=== PATIENT | female | born 1945 | race Caucasian/White ===

== ENCOUNTER 2016-08-04 10:37 | Inpatient (IN) ==
[2016-08-04] MEDS ORDERED: Albuterol 2.5 MG/3 ML NEBULIZER IH PRN (11:17)
[2016-08-04] MEDS ORDERED: *HR* Succinylcholine 200 MG/10 ML VIAL IVP ONE (11:19)
[2016-08-04] MEDS ORDERED: *HR* Phenylephrine 10 MG/ML VIAL ONE (11:19)
[2016-08-04] MEDS ORDERED: *HR* Rocuronium Bromide 50 MG/5 ML VIAL ONE (11:19)
[2016-08-04] MEDS ORDERED: Lidocaine -MPF 4% 5 ML AMPUL ONE ×2 (11:19→11:21)
[2016-08-04] MEDS ORDERED: Lidocaine -MPF 2% 2 ML VIAL ONE ×2 (11:19→13:15)
[2016-08-04] MEDS ORDERED: ceFAZolin 2,000 MG in D5% in Water (Mini-Bag+) 100 ML IVPB ONE (11:21)
[2016-08-04] MEDS ORDERED: *HR* Remifentanil 2 MG VIAL IVP ONE ×2 (11:21→15:37)
[2016-08-04] MEDS ORDERED: *HR* Propofol 200 MG/20 ML VIAL IVP ONE (11:21)
[2016-08-04] MEDS ORDERED: *HR* Midazolam HCl 2 MG/2 ML VIAL ONE (11:21)
[2016-08-04] MEDS ORDERED: EPHEDrine 50 MG/ML VIAL ONE (11:26)
--- NOTE | 2016-08-04 11:26 | Anesthesia Evaluation PreOp ---
Date of Encounter: 08/04/16 Time of Encounter: 11:23 - Past History Planned Operation: Left CEA Cardiac History: [place] (2013), HTN, Hyperlipidemia, Cardiac Stent (x 13 last stent 2013), Other ( 13 cardiac stents, [facility] 2005 with 4 stents, last stenting 2013 after [place] COPR, intubation and 14 day ICU admission) Pulmonary History: Former smoker (Quit > 1 year ago) [employer] SETTER History: Denies Any Significant HX Other Medical History: Renal (One kidney) Anesthesia History: No Prior Anesthetic Complications, Past Anesthesia (PRESLEY,GB, Appy, Discectomy,Cardiac stents, Cervical spine) : No Alcohol Use: none Drug use: none Medications and Allergies Alprazolam [Xanax 0.25 MG Tablet] 1 mg PO QID 08/09/15 [History] Aspirin [Adult Low Dose Aspirin EC] 81 mg PO DAILY 08/09/15 [History] Cyanocobalamin (B-12) [Vitamin B12] 1,000 mcg PO DAILY 08/09/15 [History] Isosorbide MONOnitrate (24 HR) [Imdur] 30 mg PO DAILY 08/09/15 [History] Metoprolol Tartrate [Lopressor] 25 mg PO BID 08/09/15 [History] Multivitamin [Multi-Day Vitamins] 1 each PO DAILY 08/09/15 [History] Nitroglycerin [Nitrostat] 0.4 mg SL TID PRN 08/09/15 [History] Paroxetine HCl [Paroxetine] 40 mg PO DAILY 08/09/15 [History] Valsartan/Hydrochlorothiazide [Diovan Hct 160-25 mg Tablet] 1 each PO DAILY [History] Pantoprazole Sodium [Protonix] 40 mg PO DAILY 14 Days 09/07/15 [Rx] Saline Nasal [place] [[place] Nasal [place]] 3 spray NS QID 7 Days 09/07/15 [Rx] Allopurinol [Zyloprim] 300 mg PO DAILY 07/31/16 [History] Atorvastatin [Lipitor] 40 mg PO HS 07/31/16 [History] Hydrocodone/Acetaminophen [[place] 5-325 Tablet] 2 each PO Q6HR PRN 07/31/16 [ History] Sitagliptin Phosphate [Januvia] 100 mg PO DAILY 07/31/16 [History] Tiotropium [Spiriva] 18 mcg IH DAILY PRN 07/31/16 [History] Valsartan/Hydrochlorothiazide [Diovan Hct 160-25 mg Tablet] 1 each PO DAILY [History] Allergies Penicillins Allergy (Verified 07/31/16 09:10) Hives Ticarcillin Allergy (Verified 07/31/16 09:10) Hives aspirin Adverse Reaction (Verified 07/31/16 09:10) See Comments stomach barboza with full strength clavulanic acid Adverse Reaction (Verified 07/31/16 09:10) Heartburn ondansetron [From Zofran (as hydrochloride)] Adverse Reaction (Verified 09:10) Hives Vrzshms-Zen-Xcp Reductase Inhibitor [Statins] Adverse Reaction (Verified 09:10) Muscle Pain - Meds/Allergy Pre-op Review Medications Reviewed: Yes Allergies Reviewed: Yes Beta Blockers on Current Med List: Yes If Beta Blockers taken, Date/Time (Last Dose taken): 09:00 08/04/2016 Anesthesia Results - Labs Laboratory Tests 07/23/16 07/23/16 07/23/16 08:07 08:07 08:07 WBC 8.8 Hgb 13.5 Hct 42.9 Plt Count 231 INR 1.1 Sodium 141 Potassium 4.1 Chloride 104 Carbon Dioxide 28 BUN 16 Creatinine 1.10 Stress 03/10/14 EF - 72% mod LV diastolic dysfunction Small apical perfusion defect low risk finding echo 03/10/2017 EF-60-65% No sig. Valvular dx - Imaging EKG: image reviewed (SR, Poss lat ischemia) Anesthesia Exam O2 Sat Height 1.65 m Height 1.65 m Height 1.65 m Weight 80.286 kg Weight 80.286 kg Weight 80.286 kg O2 Sat by Pulse Oximetry 96 Vital Signs Temp Pulse Resp BP Pulse Ox 97.9 F 81 18 124/70 96 08/04/16 11:23 08/04/16 11:23 08/04/16 11:23 08/04/16 11:23 08/04/16 11:23 Height: 5'5'' Weight: 157# - HEENT Pupil (Motor): Pupils equal, EOMI Mallampati: III Teeth: Edentulous Oral Opening: Greater than 3 - [employer] SETTER LOC: Oriented [employer] P[employer]ACH[employer] SETTER Motor: Normal RUE, Normal LUE, Normal RLE, Normal LLE, Normal Face [employer] P[employer] SETTER Sensory: Normal: RUE, LUE, RLE, LLE, Face - Cardiac Rhythm: Regular Murmur: None JVD: No Carotid Bruit: No - Pulmonary Breath Sounds: bilateral Clear Respiratory Effort: Symmetrical Anesthesia Assess/Plan ASA Score: 3 Modified Ruel Scale for Level of Consciousness: Cooperative, oriented, and tranquil Anesthetic Plan: General Autologous Blood: Yes Monitoring Plan: Standard Monitors, A-Line Recovery Plan: PACU
[2016-08-04] MEDS ORDERED: Ringers Solution, Lactated 1,000 ML IVC SCH (11:30)
[2016-08-04] MEDS ORDERED: Heparin 1,000 UNITS/500 mL NS 500 ML ONE (12:53)
[2016-08-04] MEDS ORDERED: Heparin 1,000 UNITS/500 mL NS 1,000 ML ONE (12:56)
[2016-08-04] MEDS ORDERED: Lidocaine 1% 20 ML MDV ONE (12:56)
--- NOTE | 2016-08-04 13:05 | History & Physical Report ---
Date of Encounter: 08/04/16 Time of Encounter: 13:04 24 Hour HP Update - Instructions Instructions: If the History and Physical is less than 30 days old and was completed prior to A.M. admission and or procedure and has NOT been updated on calendar day of procedure please complete this update prior to performing procedure. - Update Patient reports changes in Medical Condition: No Changes in assessment/condition: No Changes in Medication: No Preop tests/diagnostics Reviewed: Yes Surgery Remains Indicated: Yes Consent for Planned Operative Procedure(s) Verified: Yes - Pre-Operative Checklist Preoperative Checklist Indicated: Yes Prophylactic Antibiotic Ordered: Yes Home Medications Include Beta Toni: Yes Beta Toni Taken Today (Day of Surgery): Yes Beta Toni Taken Yesterday (Day Prior to Surgery): Yes Is VTE Prophylaxis Indicated?: Yes
--- NOTE | 2016-08-04 13:51 | Operative Note ---
Date of procedure: 08/04/16 Pre-op diagnosis: left carotid stenosis Post-op diagnosis: same Procedure: left carotid endarterectomy with 8 Fr shunt and patch Hemashield angioplasty Anesthesia: NICOLAS Surgeon: Bony Rubio Estimated blood loss (cc): 75 Specimen: none Condition: stable Disposition: PACU Procedure in Detail: History Danya Vital is a 71-year-old white female with a history of peripheral vascular disease. She is undergone previous stent angioplasty of the left common iliac artery. She was identified as also having carotid artery disease and an abnormal carotid duplex scan. She underwent a carotid angiogram this past week and this identified a high-grade lesion of the left internal carotid artery. She also has a 75% stenosis of the left subclavian artery. The patient outcomes for surgery for this asymptomatic high-grade left internal carotid artery stenosis. Procedure After informed consent was obtained the patient was taken to the operating room. General endotracheal anesthesia was established. An arterial line was placed. The left neck was then sterilely prepped and draped. A timeout protocol was observed. An oblique incision was then made on the left neck paralleling the anterior border of the sternocleidomastoid muscle. Dissection was carried down to reveal the carotid artery and the contents of the carotid sheath. The hypoglossal nerve was identified and preserved during this dissection. It was found that there was a posterior rotation of the carotid bifurcation such that the superior thyroid artery exited from the external carotid artery and a posterior orientation. In order to adequately identify and expose the internal carotid artery thE superior thyroid artery was divided and ligated. With this done the external carotid artery could be gently rotated and then the internal carotid artery was appropriately exposed. Control was obtained distally and then the patient was given heparin in a dose of 5000 units intravenously. After a three-minute delay the vessel was clamped with the internal carotid artery clamped first. Using an 11 blade knife and Scott scissors the artery was opened. An 8 [place] shunt was then inserted atraumatically. The C the shunt was confirmed by the use of intraoperative Doppler. Evaluation of the artery revealed a heterogeneous plaque corresponding to the lesion identified on the angiogram. This appeared to be a greater than 85% stenosis. There are no signs of intraluminal thrombus. Dissection was then begun at the common carotid artery. Dissection was carried proximally and distally. The orifice of the external carotid artery was endarterectomized as well. The endpoint on the internal carotid artery was smooth and no tacking sutures were necessary. The bed of the vessel was inspected for any residual debris. With this accomplished and a patch angioplasty was performed. 6-0 Prolene suture was used to create a Hemashield patch angioplasty. Leaving a small space open on the suture line the shunt was clamped and divided and removed. The final few sutures were then placed. The internal carotid artery was allowed to backbleed and was reclamped. The external and common were opened and then finally the internal carotid artery was reopened. The patient tolerated this maneuver well. There is no hemodynamic distress. Excellent Doppler signals and palpable pulses were identified throughout the carotid system. The wound was then irrigated and hemostasis achieved. A superficial cervical block using half percent Marcaine was performed. The wound was then closed in layers using absorbable suture. No drains were placed. Estimated blood loss was 75 mL area the patient awoke from anesthesia and was neurologically intact. She was taken to the recovery room in stable condition.
[2016-08-04] MEDS ORDERED: NiCARdipine 2.5 MG/10 ML Syringe IVPB ONE (13:55)
[2016-08-04] MEDS ORDERED: Dexamethasone 4 MG/ML VIAL ONE (13:57)
[2016-08-04] MEDS ORDERED: Naloxone 0.4 MG/ML INJ IVP PRN ×2 (14:09→18:34)
[2016-08-04] MEDS ORDERED: Albuterol 2.5 MG/3 ML NEBULIZER IH ONE (14:09)
[2016-08-04] MEDS ORDERED: *HR* Meperidine 25 MG/ML SYRINGE IVP PRN (14:09)
[2016-08-04] MEDS ORDERED: *HR* Promethazine 25 MG/ML VIAL IVP PRN (16:24)
[2016-08-04] MEDS ORDERED: *HR* Promethazine 25 MG/ML VIAL ONE (16:24)
[2016-08-04] MEDS: *HR* HYDROmorphone (PF) 1 MG/ML SYRINGE IVP PRN ×3 (16:28→16:52)
[2016-08-04] MEDS: *HR* Labetalol 100 MG/20 ML MDV IVP PRN ×2 (16:31→16:36)
--- NOTE | 2016-08-04 17:28 | Anesthesia Evaluation Post Op ---
Date of Encounter: 08/04/16 Time of Encounter: 17:27 - Vital Signs Vital Signs: Last Vital Signs Temp 97.6 F 08/04/16 17:12 Pulse 81 08/04/16 17:12 Resp 16 08/04/16 17:12 BP 126/50 08/04/16 17:12 Pulse Ox 96 08/04/16 17:12 - Lungs Lungs: Clear Ascult./Percussion - Airway Airway: Non-obstructed - Cardiovascular Regular Rate - Mental Status Mental Status: Alert & Oriented, Answers Appropriately - Pain Pain Scale: 3 - Nausea Vomiting Nausea Vomiting: Responds to treatment with IV Meds - Hydration Hydration: Ice chips, Beard catheter - Discharge PostOp Status: Transfer Patient to floor
[2016-08-04] MEDS ORDERED: ALPRAZolam 0.5 MG TABLET PO PRN (18:34)
[2016-08-04] MEDS ORDERED: Tiotropium 18 MCG inhalation IH PRN (18:34)
[2016-08-04] MEDS ORDERED: Ondansetron 4 MG/2 ML VIAL IVP PRN (18:34)
[2016-08-04] MEDS ORDERED: Nitroglycerin 0.4 MG TAB.SUBL SL PRN (18:34)
[2016-08-04] MEDS: ceFAZolin 2,000 MG in D5% in Water 100 ML IVPB SCH (21:14)
[2016-08-05] MEDS: *HR* HYDROcodone/Acet 5/325 mg TABLET PO PRN ×2 (01:05→10:21)
[2016-08-05] MEDS: ceFAZolin 2,000 MG in D5% in Water 100 ML IVPB SCH ×2 (05:05→12:11)
[2016-08-05 05:17] LABS: Basophils % 0.1 %; Hematocrit 34.6 % (35.3-44.9); Hemoglobin 10.9 g/dL (11.5-15.4); Immature Granulocytes % 0.5 % (0-4); Lymphocytes # 1.1 K/mcL (0.6-4.6); Lymphocytes % 8.1 %; Mean Corpuscular HGB Conc 31.5 g/dL (31.6-35.5); Mean Corpuscular Hemoglobin 27.2 pg (28.0-33.3); Mean Corpuscular Volume 86.3 fL (83.0-100.0); Mean Platelet Volume 9.9 fL (9.4-12.4); Monocytes # 0.3 K/mcL (0.0-1.3); Neutrophils # 12.2 K/mcL (1.6-8.9); Platelet Count 215 K/mcL (140-400); Red Blood Count 4.01 M/mcL (3.82-4.97); Red Cell Distribution Width 15.9 % (11.5-14.5); Segmented Neutrophils % 89.3 %
[2016-08-05 05:42] LABS: BUN/Creatinine Ratio 17 (6-26); Blood Urea Nitrogen 18 mg/dL (7-20); Calcium 9.5 mg/dL (8.6-10.8); Carbon Dioxide 26 mEq/L (19-29); Chloride 103 mEq/L (98-109); Glucose 153 mg/dL (70-99); Osmolality,Calculated 291 (280-300); Potassium 3.8 mEq/L (3.5-4.5); Sodium 138 mEq/L (136-145); eGFR For African Americans > 60 (> 60); eGFR For Non-African Americans 53 (> 60)
[2016-08-05] MEDS ORDERED: Isosorbide MONOnitrate (24 HR) 30 MG TAB.ER.24H PO SCH (09:00)
[2016-08-05] MEDS ORDERED: Aspirin Enteric Coated 81 MG Tablet PO SCH (09:00)
[2016-08-05] MEDS ORDERED: Valsartan 160 MG TABLET PO SCH (09:00)
[2016-08-05] MEDS ORDERED: *HR* SitaGLIPtin 25 MG TABLET PO SCH (09:00)
[2016-08-05] MEDS ORDERED: hydroCHLOROthiazide 25 MG TABLET PO SCH (09:00)
[2016-08-05 16:04] VITALS: BP 140/53
--- NOTE | 2016-08-05 17:44 | Discharge Summary ---
Date of Encounter: 08/05/16 Time of Encounter: 17:41 - Discharge Diagnosis (1) Carotid arterial disease Priority: Primary Status: Chronic Comments: Abnormal carotid duplex scan showing high-grade left carotid stenosis. Confirmed by carotid artery angiogram performed this past Wednesday. Patient was admitted now for left carotid endarterectomy. Qualifiers: Laterality: left Qualified Code(s): I77.9 - Disorder of arteries and arterioles, unspecified (2) HTN (hypertension) Priority: Secondary Status: Chronic Qualifiers: Hypertension type: essential hypertension Qualified Code(s): I10 - Essential (primary) hypertension - Discharge Medications Prescriptions: HYDROcodone/Acet 5/325 mg [[place] 5-325 mg] 1 - 2 tab PO Q6HR PRN #14 tablet PRN Reason: Moderate Pain Home Medications: Alprazolam [Xanax 0.25 MG Tablet] 1 mg PO QID PRN 08/09/15 [History] Aspirin [Adult Low Dose Aspirin EC] 81 mg PO DAILY 08/09/15 [History] Isosorbide MONOnitrate (24 HR) [Imdur] 30 mg PO DAILY 08/09/15 [History] Nitroglycerin [Nitrostat] 0.4 mg SL TID PRN 08/09/15 [History] Paroxetine HCl [Paroxetine] 40 mg PO DAILY 08/09/15 [History] Pantoprazole Sodium [Protonix] 40 mg PO DAILY 14 Days 09/07/15 [Rx] Allopurinol [Zyloprim] 300 mg PO DAILY 07/31/16 [History] Atorvastatin [Lipitor] 40 mg PO DAILY 07/31/16 [History] Tiotropium [Spiriva] 18 mcg IH DAILY PRN 07/31/16 [History] Valsartan/Hydrochlorothiazide [Diovan Hct 160-25 mg Tablet] 1 each PO DAILY [History] Albuterol Sulfate [Albuterol Inhaler] 2 puff IH Q4HR PRN 08/04/16 [History] Metoprolol [Lopressor] 25 mg PO BID 08/04/16 [History] SitaGLIPtin [Januvia] 100 mg PO DAILY 08/04/16 [History] HYDROcodone/Acet 5/325 mg [[place] 5-325 mg] 1 - 2 tab PO Q6HR PRN #14 tablet [Rx] Allergies/Adverse Reactions: Allergies ondansetron [From Zofran (as hydrochloride)] Allergy (Verified 08/04/16 13:29) Hives aspirin Adverse Reaction (Verified 08/04/16 13:29) See Comments stomach barboza with full strength clavulanic acid Adverse Reaction (Verified 08/04/16 13:29) Heartburn Penicillins Adverse Reaction (Verified 08/04/16 13:29) Vomiting Ugqjujd-Mhj-Art Reductase Inhibitor [Statins] Adverse Reaction (Verified 13:29) Muscle Pain Ticarcillin Adverse Reaction (Verified 08/04/16 13:29) Vomiting Date of admission: 08/04/16 17:31 Primary care physician: Ozzy Oleary MD Consults: none Procedure(s) Performed: left carotid endarterectomy Discharging clinician: Bony Rubio Anticipated date of discharge: 08/05/16 - Patient Status Disposition: Home, Self-Care Condition: Good Functional capacity at discharge: independent ambulation Overall status at discharge: patient is progressing back to baseline - Discharge Instructions Instructions: Heart Healthy Diet (DC), Carotid Endarterectomy (DC), Chronic Obstructive Pulmonary Disease (DC), Chronic Hypertension (DC) Follow Up With: Ozzy Oleary MD [Primary Care Provider] - 08/11/16 9:00 am (This doctor has went back to [facility]. No longer in [place]) Bony Rubio MD [Partnered Physician] - 08/26/16 9:45 am Additional Instructions: Apply ice pack to left neck incision for 48 hours. Resume usual home medications. No automobile driving 2 weeks. No heavy lifting greater than 10 pounds or manual labor for 2 weeks. Keep left neck incision dry for total of 5 days following surgery. - Diet and Activity Activity: increase activity as tolerated Diet: diabetic diet - Hospital Course Hospital course: Ms. Vital is a 71 year old female Plan a high-grade A symptomatically carotid stenosis. Patient was admitted for left carotid endarterectomy which was performed yesterday. The patient had no. Procedural complications. The patient tolerated the surgery well. Postoperatively she was neurologically intact. Her vital signs were stable. She was felt that for discharge on the afternoon of postoperative day #1. Instructions in regards to diet and exercise and wound care were reviewed with the patient prior to discharge. - Time Spent with Patient Total time spent providing and/or coordinating discharge services: Exam Vital Signs, Last 4 Hours Temp Pulse Resp BP Pulse Ox 08/05/16 16:44 80 08/05/16 15:58 97.9 F 75 71 140/53 95 08/05/16 14:16 93 L General: Present: Conversant, No Apparent Distress, Well developed, Well nourished HEENT: Present: Trachea midline, Pupils equal Neck: Absent: JVD, Midline deformity, Tracheal deviation Cardiac: Present: Reg Rate and Rhythm Lungs: Present: Normal Breath Sounds Neuro: Present: Alert and responsive, No focal deficits noted, Cranial nerves grossly intact, Motor nerves grossly intact, Sensory nerves grossly intact Vascular: Present: Surgical incisions (Left neck incision is clean and dry. There is no tracheal deviation or hematoma.) - VTE Documentation of Mechanical Device: Intermittent pneumatic compression device
== END 2016-08-05 18:20 | disposition home or self-care (01) | DRG 39 ==
LOC: SAMDAY 10:37 → 2NNU 17:31
PROVIDERS: ADMIT Surgery Vascular Surgery; ATTEND Surgery Vascular Surgery

== ENCOUNTER 2017-07-28 18:34 | Inpatient (IN) ==
[2017-07-28] MEDS ORDERED: Aspirin 81 MG TAB.CHEW PO STA (19:15)
--- NOTE | 2017-07-28 19:23 | Emergency Department Note ---
Disposition Clinical Impression: COPD exacerbation Chest pain Qualifiers: Chest pain type: unspecified Qualified Code(s): R07.9 - Chest pain, unspecified Disposition: Admitted As Inpatient Condition: Fair Time of Disposition: 20:53 Chest Pain HPI - General Chief Complaint: ED Chest Pain Stated Complaint: Chest Pain Time Seen by Provider: 07/28/17 19:07 Source: patient Limitations: no limitations Vital Signs Reviewed: Yes Nursing Notes Reviewed: Yes - History of Present Illness HPI Narrative: Patient is a 72-year-old female who presents to [facility] ED with a chief complaint of chest pressure and cough. States her symptoms have been going on for the last 3 days now. States it is worse with exertion. Also having an ache in her right shoulder. Denies any nausea, vomiting, fever or chills. She does have a history of COPD and states this does feel like her COPD has flared up. No abdominal pain, problems with urination or bowel movements. Past medical history significant for CAD with 13 stents. States last time she was here, she was transferred up to [place] for a heart catheterization which had showed some narrowing. Pt complaint: chest pain Onset (ago): day(s) Duration: intermittent Onset: during rest, during exertion Pain Location: substernal Severity: moderate Severity scale (1-10): 4 Quality: heaviness Pain Radiation: RUE Improves with: nothing Worsens with: exertion Associated symptoms: Reports: dyspnea, cough. Denies: nausea, vomiting, diaphoresis, fever Treatments prior to arrival chest pain: none - Related Data Home Medications Medication Instructions Recorded Confirmed ALPRAZolam [Xanax 0.25 MG Tablet] 0.25 mg PO QID 08/09/15 07/28/17 Aspirin [Adult Low Dose Aspirin EC] 81 mg PO DAILY 08/09/15 07/28/17 Nitroglycerin [Nitrostat] 0.4 mg SL Q5M PRN 08/09/15 07/28/17 Paroxetine HCl [Paroxetine] 40 mg PO QAM 08/09/15 07/28/17 Atorvastatin [Lipitor] 40 mg PO HS 07/31/16 07/28/17 Tiotropium [Spiriva] 18 mcg IH DAILY 07/31/16 07/28/17 Albuterol Sulfate [Albuterol 2 puff IH Q4HR PRN 08/04/16 07/28/17 Inhaler] Metoprolol [Lopressor] 25 mg PO BID 08/04/16 07/28/17 Isosorbide MONOnitrate (24 HR) 60 mg PO DAILY 07/28/17 07/28/17 [Imdur] Multivitamin [One Daily 1 each PO DAILY 07/28/17 07/28/17 Multivitamin] Sitagliptin Phosphate [Januvia] 50 mg PO DAILY 07/28/17 07/28/17 Valsartan [Diovan] 160 mg PO DAILY 07/28/17 07/28/17 Previous Rx's Medication Instructions Recorded Pantoprazole Sodium [Protonix] 40 mg PO DAILY 14 Days tablet. 09/07/15 Ipratropium/Albuterol Neb [Duoneb] 3 ml IH Q6H PRN #30 vial.neb 07/28/17 Promethazine/Dextromethorphan 5 ml PO Q4-6H PRN #120 ml 07/28/17 [Promethazine-Dm Syrup] Sulfamethoxazole/Trimeth DS 1 each PO BID #20 tablet 07/28/17 [Bactrim DS] Allergies Allergy/AdvReac Type Severity Reaction Status Date / Time ondansetron Allergy Hives Verified 07/28/17 18:39 [From Zofran (as hydrochloride)] clavulanic acid AdvReac Heartburn Verified 07/28/17 18:39 Penicillins AdvReac Vomiting Verified 07/28/17 18:39 Zksqjtz-Cxw-Fqj Reductase AdvReac Muscle Pain Verified 07/28/17 18:39 Inhibitor [Statins] Ticarcillin AdvReac Vomiting Verified 07/28/17 18:39 All systems ED: reviewed and negative except as stated. Chest Pain PMH - Past Medical History Medical history: Reports: COPD, coronary artery disease, hypertension, other Surgical history: Reports: appendectomy, cholecystectomy, hysterectomy Psychiatric history: Reports: anxiety - Social History Smoking Status: Former smoker Alcohol use: Reports: none Drug use: Reports: none Physical Exam - General Limitations: no limitations General appearance: alert - Head Head exam: atraumatic, normocephalic, normal inspection - Eye Eye exam: Present: normal appearance, EOMI - ENT ENT exam: normal exam, normal oropharynx, mucous membranes moist - Neck Neck exam: Present: normal inspection, full ROM, trachea midline - Chest Chest inspection: Present: normal inspection, symmetric chest wall rise - Respiratory Respiratory exam: Present: wheezes (b/l diffusely) - Cardiovascular Cardiovascular exam: Present: regular rate, normal rhythm, normal heart sounds - Abdominal Exam Abdominal exam: Present: soft, Non-Tender. Absent: tenderness, distention, guarding, rebound, rigidity - Extremities Exam Extremities exam: Present: normal inspection, full ROM. Absent: tenderness, pedal edema - Back Exam Back exam: Present: normal inspection, full ROM. Absent: tenderness - Neurological Exam Neurological exam: Present: alert, oriented X3 - Psychiatric Psychiatric exam: Present: normal affect, normal mood - Skin Skin exam: Present: warm, dry, intact, normal color Course Course Narrative: Patient seen and examined. Chest pain and difficulty breathing. Cardiopulmonary workup initiated. We will get a triple DuoNeb treatment along with Solu-Medrol. We will also give her an aspirin and nitroglycerin for her chest pain. - Reevaluation(s) Reevaluation #1: Patient's lab work is unremarkable. Suspect patient's chest pressure is more secondary to her COPD. Upon reexamination, her lungs are still tight bilaterally though she is moving air a little bit better. We will admit for COPD exacerbation. I discussed with hospitalist Dr. Marin who has accepted patient for admission. Time: 20:53 Vital Signs Temperature 97.1 F L 07/28/17 18:39 Pulse Rate 94 07/28/17 18:39 Respiratory Rate 24 07/28/17 18:39 Blood Pressure 186/78 07/28/17 18:39 O2 Sat by Pulse Oximetry 99 07/28/17 18:39 Temperature 97.6 F 07/29/17 19:28 Pulse Rate 98 07/29/17 19:28 Respiratory Rate 16 07/29/17 19:28 Blood Pressure 132/51 07/29/17 19:28 O2 Sat by Pulse Oximetry 94 07/29/17 19:28 Oxygen Delivery Oxygen Delivery Room Air Chest Pain - Medical Records Medical records reviewed: Yes I reviewed the patient's medical records. - Lab Data Lab results reviewed: Yes I reviewed the patient's lab results. Result diagrams: 07/29/17 01:03 07/29/17 01:03 Lab Results 07/28/17 07/28/17 Range/Units 19:32 19:32 WBC 11.1 (4.3-11.1) K/mcL RBC 4.72 (3.82-4.97) M/mcL Hgb 13.1 (11.5-15.4) g/dL Hct 41.3 (35.3-44.9) % MCV 87.5 (83.0-100.0) fL MCH 27.8 L (28.0-33.3) pg MCHC 31.7 (31.6-35.5) g/dL RDW 14.6 H (11.5-14.5) % Plt Count 196 (140-400) K/mcL MPV 9.2 L (9.4-12.4) fL Immature Gran % 0.4 (0-4) % Seg Neutrophils % 62.6 % Lymphocytes % 27.0 % Monocytes % 7.3 % Eosinophils % 2.2 % Basophils % 0.5 % Neutrophils # 7.0 (1.6-8.9) K/mcL Lymphocytes # 3.0 (0.6-4.6) K/mcL Monocytes # 0.8 (0.0-1.3) K/mcL Eosinophils # 0.2 (0.0-0.6) K/mcL Basophils # 0.1 (0.0-0.2) K/mcL Sodium 140 (136-145) mEq/L Potassium 3.5 (3.5-5.1) mEq/L Chloride 105 (98-107) mEq/L Carbon Dioxide 28 (23-29) mEq/L BUN 15 (8-23) mg/dL Creatinine 1.15 (0.60-1.20) mg/dL Est GFR ( Amer) 56 L (> 60) Est GFR (Non-Af Amer) 46 L (> 60) BUN/Creatinine Ratio 13 (6-26) Glucose 110 H (70-105) mg/dL Calculated Osmolality 291 (280-300) Calcium 9.7 (8.6-10.3) mg/dL Total Bilirubin 0.3 (0.3-1.0) mg/dL AST 19 (13-39) Units/L ALT 20 (7-52) Units/L Alkaline Phosphatase 83 (34-104) Units/L Troponin I < 0.03 (< 0.04) ng/mL Serum Total Protein 6.9 (6.4-8.9) g/dL Albumin 3.8 (3.5-5.7) g/dL Globulin 3.1 (2.4-3.5) g/dL Albumin/Globulin Ratio 1.2 (1.1-2.2) - Radiology Data Radiology results reviewed: Yes I reviewed the patient's radiology results. Chest X-Ray 07/28/17 18:47 IMPRESSION: No acute cardiopulmonary process. D/ / Francesco Golden MD / Francesco Golden MD Interpreting Provider: Francesco Golden MD - EKG Data EKG attestation: Yes I reviewed and interpreted this EKG. EKG results narrative: EKG done at 1857 shows normal sinus rhythm with a rate of [address] elevation. There is some ST depression in leads 1, 2, aVF, V4 through V6. Also T-wave inversions. EKG appears relatively unchanged from prior EKG done earlier today. Heart Score - Score History: Moderately Suspicious EKG: Non Specific repolarisation Disturbance Age: Greater than 65 Risk Factors: Equal/Greater than 3 risk factor or history of atherosclerotic disease Troponin: Less than normal limit HEART Score Total: 6 Attestation Statement - Attestation Attestation: I examined this patient and my medical decision-making was reviewed with the Resident Physician. I agree with the documented findings, disposition and treatment plan as described except to the extent set forth below. Very concerning story for ischemia with abnormal EKG that does not quite meet STEMI criteria. There are also new lateral changes that are new compared to prior tracing. Interventional cardiology called for opinion, as the patient did not quite meet criteria but was very concerning based on her description of symptoms and her prior history, and was very shy of meeting Manufacturing Intern criteria. Print Buyer evaluated EKGs and agreed that she did not meet STEMI criteria. Evaluated the patient the ED. Based on her complex history and prior difficulty stenting her, and concern for the possible need for redo bypass, which would not be done here due to her being a high-risk patient, they recommended transfer to [place] where she is cared for by Dr. Gallagher in the past. This was facilitated by us. Pain was down to a 1 out of 10 at the time she left the department. Repeat EKG showed no new changes. Critical care time: I was directly and primarily involved in the care of this patient for 35 minutes excluding procedures.
[2017-07-28] MEDS ORDERED: Ipratropium/Albuterol Neb 3 ML IH ONE (19:52)
[2017-07-28] MEDS ORDERED: methylPREDNISolone 125 MG/2 ML VIAL IVP ONE (19:52)
[2017-07-28 19:58] LABS: Basophils # 0.1 K/mcL (0.0-0.2); Basophils % 0.5 %; Eosinophils # 0.2 K/mcL (0.0-0.6); Eosinophils % 2.2 %; Hematocrit 41.3 % (35.3-44.9); Hemoglobin 13.1 g/dL (11.5-15.4); Immature Granulocytes % 0.4 % (0-4); Mean Corpuscular HGB Conc 31.7 g/dL (31.6-35.5); Mean Corpuscular Hemoglobin 27.8 pg (28.0-33.3); Mean Corpuscular Volume 87.5 fL (83.0-100.0); Mean Platelet Volume 9.2 fL (9.4-12.4); Monocytes # 0.8 K/mcL (0.0-1.3); Monocytes % 7.3 %; Platelet Count 196 K/mcL (140-400); Red Blood Count 4.72 M/mcL (3.82-4.97); Red Cell Distribution Width 14.6 % (11.5-14.5); Segmented Neutrophils % 62.6 %
[2017-07-28 20:26] LABS: Alanine Aminotransferase 20 Units/L (7-52); Albumin 3.8 g/dL (3.5-5.7); Albumin/Globulin Ratio 1.2 (1.1-2.2); Alkaline Phosphatase 83 Units/L (34-104); Aspartate Amino Transferase 19 Units/L (13-39); BUN/Creatinine Ratio 13 (6-26); Bilirubin,Total 0.3 mg/dL (0.3-1.0); Blood Urea Nitrogen 15 mg/dL (8-23); Calcium 9.7 mg/dL (8.6-10.3); Carbon Dioxide 28 mEq/L (23-29); Chloride 105 mEq/L (98-107); Globulin 3.1 g/dL (2.4-3.5); Glucose 110 mg/dL (70-105); Osmolality,Calculated 291 (280-300); Potassium 3.5 mEq/L (3.5-5.1); Sodium 140 mEq/L (136-145); Total Protein 6.9 g/dL (6.4-8.9); Troponin I < 0.03 ng/mL (< 0.04); eGFR For African Americans 56 (> 60); eGFR For Non-African Americans 46 (> 60)
[2017-07-28] MEDS: Nitroglycerin 0.4 MG TAB.SUBL SL PRN ×2 (20:40→20:48)
[2017-07-29] MEDS ORDERED: Naloxone 0.4 MG/ML INJ IVP PRN (00:30)
[2017-07-29] MEDS ORDERED: Ipratropium/Albuterol Neb 3 ML IH PRN (00:33)
[2017-07-29] MEDS ORDERED: Nitroglycerin 0.4 MG TAB.SUBL SL PRN (00:36)
[2017-07-29] MEDS ORDERED: *HR* Dextrose 50 % in Water (Syg) 50 ML SYRINGE IVP PRN (00:41)
[2017-07-29] MEDS ORDERED: Dextrose Gel 15 GM/37.5 ML TUBE PO PRN ×2 (00:41)
[2017-07-29] MEDS ORDERED: D5% in Water 1,000 ML IVC PRN (00:41)
[2017-07-29] MEDS: ALPRAZolam 0.25 MG TABLET PO SCH ×5 (01:08→20:03)
[2017-07-29 01:24] LABS: Basophils % 0.3 %; Eosinophils % 0.3 %; Hematocrit 40.2 % (35.3-44.9); Hemoglobin 12.8 g/dL (11.5-15.4); Immature Granulocytes % 0.4 % (0-4); Mean Corpuscular HGB Conc 31.8 g/dL (31.6-35.5); Mean Corpuscular Hemoglobin 27.8 pg (28.0-33.3); Mean Corpuscular Volume 87.2 fL (83.0-100.0); Mean Platelet Volume 9.6 fL (9.4-12.4); Monocytes # 0.1 K/mcL (0.0-1.3); Monocytes % 0.4 %; Neutrophils # 10.8 K/mcL (1.6-8.9); Platelet Count 193 K/mcL (140-400); Red Blood Count 4.61 M/mcL (3.82-4.97); Red Cell Distribution Width 14.6 % (11.5-14.5); Segmented Neutrophils % 90.6 %
[2017-07-29 01:41] LABS: Calcium 9.7 mg/dL (8.6-10.3); Magnesium 1.6 mg/dL (1.6-2.6); Potassium 3.4 mEq/L (3.5-5.1)
--- NOTE | 2017-07-29 02:27 | Internal Med History&Physical ---
Date of Encounter: 07/29/17 Time of Encounter: 23:00 Assessment and Plan (1) DVT prophylaxis Current visit: Yes Status: Acute Heparin subcutaneously (2) COPD exacerbation Current visit: Yes Status: Acute Patient symptoms has improved after treatment with steroids and nebulizer. - Place patient on antibiotic, steroid, and bronchodilator. - Continue closely monitor patient (3) CAD (coronary artery disease) Current visit: No Status: Acute Patient complaint of chest heaviness. No chest pain. No significant EKG change comparing with previous EKG. However, patient has a history of CAD. Need to rule out ACS. - We will continue patient's home medication aspirin, beta sharon, and statin Qualifiers: Coronary Disease-Associated Artery/Lesion type: [place] artery [place] vs. transplanted heart: [place] heart Associated angina: without angina Qualified Code(s): I25.10 - Atherosclerotic heart disease of [place] coronary artery without angina pectoris (4) Chest pressure Current visit: No Status: Acute Need to rule out ACS. - Continuous cardiac monitoring - Track 3 sets of troponin - Echocardiogram in a.m. (5) HTN (hypertension) Current visit: No Status: Chronic Continue home medications Qualifiers: Hypertension type: essential hypertension Qualified Code(s): I10 - Essential (primary) hypertension (6) Diabetes mellitus Current visit: Yes Status: Acute Patient take Januvia at home. Will place patient on sliding scale insulin Qualifiers: Diabetes mellitus type: type 2 Diabetes mellitus alf insulin use: without terminal make up operator use Diabetes mellitus complication status: with kidney complications Diabetes mellitus complication detail: with chronic kidney disease Chronic kidney disease stage: stage 3 (moderate) Qualified Code(s): E11.22 - Type 2 diabetes mellitus with diabetic chronic kidney disease; N18.3 - Chronic kidney disease, stage 3 (moderate); N18.3 - Chronic kidney disease, stage 3 (moderate) Internal Medicine - H&P: HPI Chief complaint: Shortness of breath Admitted From: Home Plans for Post Hospital Care: Home History of present illness: Ms. Vital is a 72 year old female with a history of diabetes, COPD, carotid stenosis S/P surgery, CKD because only one functional kidney left, CAD S/P stents presented to ER for shortness of breath for 3 days. Patient has a cough with greenish sputum. Patient complaint chest heaviness but no chest pain. Patient has no fever. Mild nausea but no vomiting. Patient said the feeling is not like heart attack she had previously. In ER, patient was found wheezing , she was treated with steroid and bronchodilator. Her symptoms has significantly improved. Patient was admitted for COPD exacerbation and chest heaviness to rule out ACS. Past Med Surg Social Fam HX - Past Medical History Medical history: arthritis, COPD, coronary artery disease, hypertension, other Psychiatric history: anxiety, depression - Past Surgical History Surgical History: appendectomy, cholecystectomy, hysterectomy - Social History Smoking Status: Former smoker Smokeless Tobacco Status: No Alcohol use: none Drug use: none - Family History Brother Hx Family Cardiac Disorders: Yes (Open heart sx) Father Living Status: Hx Family Cardiac Disorders: Yes ([place]) Mother Living Status: Hx Family Cardiac Disorders: Yes ([place]) Internal Medicine - H&P: Meds ALPRAZolam [Xanax 0.25 MG Tablet] 0.25 mg PO QID 08/09/15 [History] Aspirin [Adult Low Dose Aspirin EC] 81 mg PO DAILY 08/09/15 [History] Nitroglycerin [Nitrostat] 0.4 mg SL Q5M PRN 08/09/15 [History] Paroxetine HCl [Paroxetine] 40 mg PO QAM 08/09/15 [History] Pantoprazole Sodium [Protonix] 40 mg PO DAILY 14 Days tablet. 09/07/15 [Rx] Atorvastatin [Lipitor] 40 mg PO HS 07/31/16 [History] Tiotropium [Spiriva] 18 mcg IH DAILY 07/31/16 [History] Albuterol Sulfate [Albuterol Inhaler] 2 puff IH Q4HR PRN 08/04/16 [History] Metoprolol [Lopressor] 25 mg PO BID 08/04/16 [History] Ipratropium/Albuterol Neb [Duoneb] 3 ml IH Q6H PRN #30 vial.neb 07/28/17 [Rx] Isosorbide MONOnitrate (24 HR) [Imdur] 60 mg PO DAILY 07/28/17 [History] Multivitamin [One Daily Multivitamin] 1 each PO DAILY 07/28/17 [History] Promethazine/Dextromethorphan [Promethazine-Dm Syrup] 5 ml PO Q4-6H PRN #120 ml 07/28/17 [Rx] Sitagliptin Phosphate [Januvia] 50 mg PO DAILY 07/28/17 [History] Sulfamethoxazole/Trimeth DS [Bactrim DS] 1 each PO BID #20 tablet 07/28/17 [Rx] Valsartan [Diovan] 160 mg PO DAILY 07/28/17 [History] 3 Allergy/AdvReac Type Severity Reaction Status Date / Time ondansetron Allergy Hives Verified 07/28/17 18:39 [From Zofran (as hydrochloride)] clavulanic acid AdvReac Heartburn Verified 07/28/17 18:39 Penicillins AdvReac Vomiting Verified 07/28/17 18:39 Ljjrhie-Sjk-Ngw Reductase AdvReac Muscle Pain Verified 07/28/17 18:39 Inhibitor [Statins] Ticarcillin AdvReac Vomiting Verified 07/28/17 18:39 All Systems PM: A 10-system review of systems was performed and is negative for pertinent findings except as documented above in the HPI. - Constitutional Vitals: Temp Pulse Resp BP Pulse Ox 97.6 F 98 14 142/64 94 07/28/17 23:45 07/28/17 23:45 07/28/17 23:45 07/28/17 23:45 07/28/17 23:45 General appearance: Present: A&O X 3, no acute distress, answers questions appropriately - Head Head exam: Present: atraumatic, normocephalic - Eye Eye exam: Present: PERRL, conjuntiva pink, sclera anicteric Pupils: Present: PERRL - Neck Neck exam general surgery: Present: supple, trachea midline. Absent: lymphadenopathy - Respiratory Respiratory exam: Present: CTAB. Absent: accessory muscle use, rales, rhonchi, wheezes Additional comments: Coarse breath sound B/L - Cardiovascular Cardiovascular exam: Present: RRR, +S1, +S2. Absent: diastolic murmur, gallop, rubs, systolic murmur - GI/Abdominal GI/Abdominal exam: Present: normal bowel sounds, soft, no peritoneal signs. Absent: distended, tenderness - Extremities Exam Extremities exam: Present: warm, radial pulses palpable and symmetrical. Absent : calf tenderness, cyanotic, pedal edema - Neurological Exam Neurological exam: Present: CN II-XII intact, oriented X3, no focal deficits. Absent: pronater drift, facial droop, speech deficit - Skin Skin exam: Present: dry, intact Internal Med - H&P Results - Labs CBC & Chem 7: 07/29/17 01:03 07/29/17 01:03 Labs: Short CBC 07/29/17 Range/Units 01:03 WBC 11.9 H (4.3-11.1) K/mcL Hgb 12.8 (11.5-15.4) g/dL Hct 40.2 (35.3-44.9) % Plt Count 193 (140-400) K/mcL Neutrophils # 10.8 H (1.6-8.9) K/mcL BMP 07/29/17 01:03 Sodium 139 Potassium 3.4 L Chloride 103 Carbon Dioxide 20 L BUN 17 Creatinine 1.28 H Glucose 290 H Calcium 9.7 Cardiac Enzymes 07/29/17 Range/Units 01:03 Troponin I < 0.03 (< 0.04) ng/mL - EKG Data -: EKG Interpreted by Myself EKG shows normal: sinus rhythm, ST-T waves (II, III, AVF, V4-V6, slightly T wave inversion, no significant change comparing with EKG on 06/07/17.)
[2017-07-29] MEDS: Ipratropium/Albuterol Neb 3 ML IH SCH ×4 (03:44→23:41)
[2017-07-29] MEDS: *HR* Heparin 5,000 UNIT/ML VIAL SQ SCH ×2 (05:29→17:52)
[2017-07-29] MEDS: Acetaminophen 325 MG TABLET PO PRN ×3 (06:15→20:03)
[2017-07-29] MEDS: Tiotropium 18 MCG inhalation IH SCH (08:17)
[2017-07-29] MEDS ORDERED: levoFLOXacin 500 MG TABLET PO SCH (09:00)
[2017-07-29] MEDS: Aspirin Enteric Coated 81 MG Tablet PO SCH (09:06)
[2017-07-29] MEDS: Valsartan 160 MG TABLET PO SCH (09:06)
[2017-07-29] MEDS: Isosorbide MONOnitrate (24 HR) 60 MG TAB.ER.24H PO SCH (09:06)
[2017-07-29] MEDS: levoFLOXacin 500 MG TABLET PO SCH (09:06)
[2017-07-29] MEDS: predniSONE 20 MG TABLET PO SCH (09:07)
[2017-07-29] MEDS: Multivit/Ca/Min/Fe/FA 1 TAB TABLET PO SCH (09:07)
[2017-07-29] MEDS: Insulin LISPRO 300 UNITS/3 ML VIAL SQ SCH ×4 (09:21→20:01)
--- NOTE | 2017-07-29 17:46 | Internal Med Progress Note ---
Date of Encounter: 07/29/17 Time of Encounter: 11:00 - Assessment and plan (1) COPD exacerbation Current Visit: Yes Status: Acute Assessment and plan: Patient originally presented with wheezing and shortness of breath for 3 days cough with greenish sputum production-we will continue with bronchodilators Steroids Oxygen as needed (2) Chest pain Current Visit: Yes Status: Acute Assessment and plan: Patient did have some chest heaviness however no chest pain on presentation suspect this may be related to her COPD exacerbation however we will rule out ACS with 3 sets of troponin Obtain echocardiogram-awaiting results Continuous cardiac monitoring Nitroglycerin as needed for chest pain Qualifiers: Chest pain type: unspecified Qualified Code(s): R07.9 - Chest pain, unspecified (3) Diabetes mellitus Current Visit: No Status: Chronic Assessment and plan: Accu-Cheks before meals at bedtime + sliding scale insulin Qualifiers: Diabetes mellitus type: type 2 Diabetes mellitus chcf insulin use: without chcf use Diabetes mellitus complication status: with kidney complications Diabetes mellitus complication detail: with chronic kidney disease Chronic kidney disease stage: stage 3 (moderate) Qualified Code(s): E11.22 - Type 2 diabetes mellitus with diabetic chronic kidney disease; N18.3 - Chronic kidney disease, stage 3 (moderate); N18.3 - Chronic kidney disease, stage 3 (moderate) (4) CAD (coronary artery disease) Current Visit: No Status: Chronic Assessment and plan: We will continue home medications aspirin beta sharon and statin Qualifiers: Coronary Disease-Associated Artery/Lesion type: [place] artery [place] vs. transplanted heart: [place] heart Associated angina: without angina Qualified Code(s): I25.10 - Atherosclerotic heart disease of [place] coronary artery without angina pectoris (5) DVT prophylaxis Current Visit: No Status: Chronic Assessment and plan: Heparin subcutaneous - Subjective Interval history: Presently patient denies any chest pain or shortness of breath. No wheezing she continues to have a cough with green sputum Denies any nausea vomiting or diarrhea has been tolerating her meals. - Constitutional Vitals: Temp Pulse Resp BP Pulse Ox 98.0 F 98 18 153/71 94 07/29/17 15:24 07/29/17 15:24 07/29/17 15:44 07/29/17 15:24 07/29/17 15:44 General appearance: Present: A&O X 3, no acute distress, answers questions appropriately - Head Head exam: Present: atraumatic, normocephalic - Eye Eye exam: Present: PERRL, conjuntiva pink, sclera anicteric Pupils: Present: PERRL - Neck Neck exam general surgery: Present: supple, trachea midline. Absent: lymphadenopathy - Respiratory Respiratory exam: Present: CTAB. Absent: accessory muscle use, rales, rhonchi, wheezes - Cardiovascular Cardiovascular exam: Present: RRR, +S1, +S2. Absent: diastolic murmur, gallop, rubs, systolic murmur - GI/Abdominal GI/Abdominal exam: Present: normal bowel sounds, soft, no peritoneal signs. Absent: distended, tenderness - Extremities Exam Extremities exam: Present: warm, radial pulses palpable and symmetrical. Absent : calf tenderness, cyanotic, pedal edema - Neurological Exam Neurological exam: Present: CN II-XII intact, oriented X3, no focal deficits. Absent: pronater drift, facial droop, speech deficit - Skin Skin exam: Present: dry, intact Internal Medicine: Result - Labs CBC & Chem 7: 07/29/17 01:03 07/29/17 01:03 Labs: Short CBC 07/29/17 Range/Units 01:03 WBC 11.9 H (4.3-11.1) K/mcL Hgb 12.8 (11.5-15.4) g/dL Hct 40.2 (35.3-44.9) % Plt Count 193 (140-400) K/mcL Neutrophils # 10.8 H (1.6-8.9) K/mcL BMP 07/29/17 01:03 Sodium 139 Potassium 3.4 L Chloride 103 Carbon Dioxide 20 L BUN 17 Creatinine 1.28 H Glucose 290 H Calcium 9.7 Cardiac Enzymes 07/29/17 07/29/17 Range/Units 01:03 07:04 Troponin I < 0.03 < 0.03 (< 0.04) ng/mL Consult Discharge Plan - Plan Referrals: Ozzy Oleary MD [Primary Care Provider] -
[2017-07-30] MEDS: Ipratropium/Albuterol Neb 3 ML IH SCH ×4 (03:53→23:23)
[2017-07-30 05:14] LABS: Basophils % 0.1 %; Hemoglobin 11.7 g/dL (11.5-15.4); Immature Granulocytes % 0.7 % (0-4); Lymphocytes # 2.1 K/mcL (0.6-4.6); Lymphocytes % 9.8 %; Mean Corpuscular HGB Conc 32.5 g/dL (31.6-35.5); Mean Corpuscular Hemoglobin 28.2 pg (28.0-33.3); Mean Corpuscular Volume 86.7 fL (83.0-100.0); Mean Platelet Volume 9.6 fL (9.4-12.4); Monocytes # 1.3 K/mcL (0.0-1.3); Neutrophils # 18.1 K/mcL (1.6-8.9); Platelet Count 225 K/mcL (140-400); Red Blood Count 4.15 M/mcL (3.82-4.97); Red Cell Distribution Width 15.1 % (11.5-14.5); Segmented Neutrophils % 83.4 %
[2017-07-30 05:25] LABS: Calcium 9.8 mg/dL (8.6-10.3); Potassium 4.1 mEq/L (3.5-5.1)
[2017-07-30] MEDS: *HR* Heparin 5,000 UNIT/ML VIAL SQ SCH ×2 (05:44→17:03)
[2017-07-30] MEDS: ALPRAZolam 0.25 MG TABLET PO SCH ×4 (07:56→20:02)
[2017-07-30] MEDS: Insulin LISPRO 300 UNITS/3 ML VIAL SQ SCH ×4 (07:57→20:02)
[2017-07-30] MEDS: Valsartan 160 MG TABLET PO SCH (07:57)
[2017-07-30] MEDS: Multivit/Ca/Min/Fe/FA 1 TAB TABLET PO SCH (07:57)
[2017-07-30] MEDS: Aspirin Enteric Coated 81 MG Tablet PO SCH (07:57)
[2017-07-30] MEDS: predniSONE 20 MG TABLET PO SCH (07:57)
[2017-07-30] MEDS: Isosorbide MONOnitrate (24 HR) 60 MG TAB.ER.24H PO SCH (07:57)
[2017-07-30] MEDS: Tiotropium 18 MCG inhalation IH SCH (10:32)
--- NOTE | 2017-07-30 11:01 | Internal Med Progress Note ---
Date of Encounter: 07/30/17 Time of Encounter: 11:00 - Assessment and plan (1) COPD exacerbation Current Visit: Yes Status: Acute Assessment and plan: Patient continues to have a moist cough with green sputum production will continue with bronchodilators Continuous steroids Oxygen as needed-SPO2 has been stable on room air (2) Chest pain Current Visit: Yes Status: Acute Assessment and plan: Cardiac troponins have been negative Echo reveals EF assisted percent mild left ventricular diastolic dysfunction normal right ventricular structure and function mid concentric left ventricular hypertrophy no evidence of pulmonary hypertension no significant Nehemias dysfunction Suspect that this is more pleuritic pain Qualifiers: Chest pain type: unspecified Qualified Code(s): R07.9 - Chest pain, unspecified (3) Diabetes mellitus Current Visit: No Status: Chronic Assessment and plan: Accu-Cheks before meals at bedtime with sliding scale insulin Qualifiers: Diabetes mellitus type: type 2 Diabetes mellitus parts counterman insulin use: without parts counterman use Diabetes mellitus complication status: with kidney complications Diabetes mellitus complication detail: with chronic kidney disease Chronic kidney disease stage: stage 3 (moderate) Qualified Code(s): E11.22 - Type 2 diabetes mellitus with diabetic chronic kidney disease; N18.3 - Chronic kidney disease, stage 3 (moderate); N18.3 - Chronic kidney disease, stage 3 (moderate) (4) CAD (coronary artery disease) Current Visit: No Status: Chronic Assessment and plan: No chest pain voiced at this time will continue with home medications of aspirin beta sharon and statin Qualifiers: Coronary Disease-Associated Artery/Lesion type: [place] artery [place] vs. transplanted heart: [place] heart Associated angina: without angina Qualified Code(s): I25.10 - Atherosclerotic heart disease of [place] coronary artery without angina pectoris (5) Leukocytosis Current Visit: Yes Status: Acute Assessment and plan: WBC 21 today and was 11 yesterday. She is afebrile, she is not tachycardic. She is on steroids which may be contributing to the rise however we will obtain urinalysis as well as sputum culture and respiratory panel blood cultures have been obtained. Continue with Levaquin Qualifiers: Leukocytosis type: unspecified Qualified Code(s): D72.829 - Elevated white blood cell count, unspecified (6) DVT prophylaxis Current Visit: No Status: Chronic Assessment and plan: Heparin subcutaneous - Subjective Interval history: Presently patient denies any chest pain or shortness of breath. No wheezing she continues to have a cough with green sputum, requesting to go home . - Constitutional Vitals: Temp Pulse Resp BP Pulse Ox 97.5 F L 78 20 156/73 95 07/30/17 07:07 07/30/17 07:07 07/30/17 07:07 07/30/17 07:07 07/30/17 07:07 General appearance: Present: A&O X 3, no acute distress, answers questions appropriately - Head Head exam: Present: atraumatic, normocephalic - Eye Eye exam: Present: PERRL, conjuntiva pink, sclera anicteric Pupils: Present: PERRL - Neck Neck exam general surgery: Present: supple, trachea midline. Absent: lymphadenopathy - Respiratory Respiratory exam: Present: CTAB. Absent: accessory muscle use, rales, rhonchi, wheezes - Cardiovascular Cardiovascular exam: Present: RRR, +S1, +S2. Absent: diastolic murmur, gallop, rubs, systolic murmur - GI/Abdominal GI/Abdominal exam: Present: normal bowel sounds, soft, no peritoneal signs. Absent: distended, tenderness - Extremities Exam Extremities exam: Present: warm, radial pulses palpable and symmetrical. Absent : calf tenderness, cyanotic, pedal edema - Neurological Exam Neurological exam: Present: CN II-XII intact, oriented X3, no focal deficits. Absent: pronater drift, facial droop, speech deficit - Skin Skin exam: Present: dry, intact Internal Medicine: Result - Labs CBC & Chem 7: 07/30/17 04:08 07/30/17 04:08 Labs: Short CBC 07/30/17 Range/Units 04:08 WBC 21.7 H D (4.3-11.1) K/mcL Hgb 11.7 (11.5-15.4) g/dL Hct 36.0 (35.3-44.9) % Plt Count 225 (140-400) K/mcL Neutrophils # 18.1 H (1.6-8.9) K/mcL BMP 07/30/17 04:08 Sodium 138 Potassium 4.1 Chloride 106 Carbon Dioxide 25 BUN 36 H Creatinine 1.31 H Glucose 186 H Calcium 9.8 Consult Discharge Plan - Plan Referrals: Ozzy Oleary MD [Primary Care Provider] -
[2017-07-30 12:37] LABS: Adenovirus Not Detected (Not Detect); Bordetella Pertussis Not Detected (Not Detect); Chlamydophila pneumoniae Not Detected (Not Detect); Coronavirus 229E Not Detected (Not Detect); Coronavirus HKU1 Not Detected (Not Detect); Coronavirus NL63 Not Detected (Not Detect); Coronavirus OC43 Not Detected (Not Detect); Human Metapneumovirus Not Detected (Not Detect); Human Rhinovirus/Enterovirus Not Detected (Not Detect); Influenza A Subtype 2009 H1 Not Detected (Not Detect); Influenza A Untypeable Not Detected (Not Detect); Influenza B Not Detected (Not Detect); Mycoplasma pneumoniae Not Detected (Not Detect); Parainfluenza Virus 1 Not Detected (Not Detect); Parainfluenza Virus 2 Not Detected (Not Detect); Parainfluenza Virus 3 Not Detected (Not Detect); Parainfluenza Virus 4 Not Detected (Not Detect); Respiratory Syncytial Virus Not Detected (Not Detect)
[2017-07-30 18:22] LABS: Bilirubin,Urine Negative (Negative); Blood,Urine Negative (Negative); Clarity,Urine Clear (Clear); Color,Urine Yellow (Yellow); Glucose,Urine (UA) Normal (Normal); Ketones,Urine Negative (Negative); Leukocyte Esterase,Urine Negative (Negative); Nitrite,Urine Negative (Negative); Protein,Urine Negative (Neg-Trace); Specific Gravity,Urine 1.026 (1.010-1.025); Urobilinogen,Urine Normal (Normal)
[2017-07-30] MEDS: Acetaminophen 325 MG TABLET PO PRN (20:02)
[2017-07-31] MEDS: Ipratropium/Albuterol Neb 3 ML IH SCH ×4 (03:35→22:36)
[2017-07-31] MEDS: *HR* Heparin 5,000 UNIT/ML VIAL SQ SCH ×2 (06:13→17:34)
[2017-07-31 06:26] LABS: Basophils % 0.2 %; Eosinophils % 0.2 %; Hematocrit 36.3 % (35.3-44.9); Hemoglobin 11.3 g/dL (11.5-15.4); Immature Granulocytes % 1.8 % (0-4); Lymphocytes # 4.1 K/mcL (0.6-4.6); Lymphocytes % 22.7 %; Mean Corpuscular HGB Conc 31.1 g/dL (31.6-35.5); Mean Corpuscular Hemoglobin 27.4 pg (28.0-33.3); Mean Corpuscular Volume 88.1 fL (83.0-100.0); Mean Platelet Volume 9.6 fL (9.4-12.4); Monocytes # 0.8 K/mcL (0.0-1.3); Monocytes % 4.5 %; Neutrophils # 12.7 K/mcL (1.6-8.9); Nucleated Red Blood Cells 0.1 /100 WBC (0); Platelet Count 241 K/mcL (140-400); Red Blood Count 4.12 M/mcL (3.82-4.97); Red Cell Distribution Width 15.3 % (11.5-14.5); Segmented Neutrophils % 70.6 %
[2017-07-31 06:37] LABS: Calcium 9.4 mg/dL (8.6-10.3); Potassium 3.8 mEq/L (3.5-5.1)
[2017-07-31] MEDS ORDERED: 0.9 % Sodium Chloride 1,000 ML IVC SCH (07:45)
[2017-07-31] MEDS: Insulin LISPRO 300 UNITS/3 ML VIAL SQ SCH ×4 (08:17→21:13)
[2017-07-31] MEDS: Tiotropium 18 MCG inhalation IH SCH (09:37)
[2017-07-31] MEDS: ALPRAZolam 0.25 MG TABLET PO SCH ×4 (09:50→21:13)
[2017-07-31] MEDS: Isosorbide MONOnitrate (24 HR) 60 MG TAB.ER.24H PO SCH (09:50)
[2017-07-31] MEDS: predniSONE 20 MG TABLET PO SCH (09:50)
[2017-07-31] MEDS: Multivit/Ca/Min/Fe/FA 1 TAB TABLET PO SCH (09:50)
[2017-07-31] MEDS: Aspirin Enteric Coated 81 MG Tablet PO SCH (09:50)
[2017-07-31] MEDS: levoFLOXacin 500 MG TABLET PO SCH (09:50)
[2017-07-31] MEDS: Valsartan 160 MG TABLET PO SCH (09:50)
--- NOTE | 2017-07-31 11:23 | Internal Med Progress Note ---
Date of Encounter: 07/31/17 Time of Encounter: 11:21 - Assessment and plan (1) COPD exacerbation Current Visit: Yes Status: Acute Assessment and plan: Patient continues to have a moist cough with light green sputum production will continue with bronchodilators Continuous steroids Oxygen as needed-SPO2 has been stable on room air (2) Chest pain Current Visit: Yes Status: Acute Assessment and plan: Cardiac troponins have been negative Echo reveals EF assisted percent mild left ventricular diastolic dysfunction normal right ventricular structure and function mid concentric left ventricular hypertrophy no evidence of pulmonary hypertension no significant Nehemias dysfunction Suspect that this is more pleuritic pain Qualifiers: Chest pain type: unspecified Qualified Code(s): R07.9 - Chest pain, unspecified (3) Diabetes mellitus Current Visit: No Status: Chronic Assessment and plan: Accu-Cheks before meals at bedtime with sliding scale insulin Qualifiers: Diabetes mellitus type: type 2 Diabetes mellitus longterm insulin use: without predatory animal exterminator use Diabetes mellitus complication status: with kidney complications Diabetes mellitus complication detail: with chronic kidney disease Chronic kidney disease stage: stage 3 (moderate) Qualified Code(s): E11.22 - Type 2 diabetes mellitus with diabetic chronic kidney disease; N18.3 - Chronic kidney disease, stage 3 (moderate); N18.3 - Chronic kidney disease, stage 3 (moderate) (4) CAD (coronary artery disease) Current Visit: No Status: Chronic Assessment and plan: No chest pain voiced at this time will continue with home medications of aspirin beta sharon and statin Qualifiers: Coronary Disease-Associated Artery/Lesion type: [place] artery [place] vs. transplanted heart: [place] heart Associated angina: without angina Qualified Code(s): I25.10 - Atherosclerotic heart disease of [place] coronary artery without angina pectoris (5) Leukocytosis Current Visit: Yes Status: Acute Assessment and plan: WBC trending down. She is afebrile, she is not tachycardic. She is on steroids which may be contributing to the rise however we will obtain urinalysis as well as sputum culture preliminary with gram-positive cocci. Respiratory panel was negative urinalysis was negative Continue with Levaquin Qualifiers: Leukocytosis type: unspecified Qualified Code(s): D72.829 - Elevated white blood cell count, unspecified (6) Community acquired pneumonia Current Visit: Yes Status: Suspected Assessment and plan: 1 patient originally presented with increasing shortness of breath as well as cough with green sputum production-she is requiring oxygen supplementation she is approximately 90% on room air -normally does not require home oxygen-chest x- ray with no acute process-patient has a history of COPD white count increased to 21,000 suspect possible pneumonia-feeling culture just showed gram-positive cocci-we will continue with Levaquin -Continue with oxygen titrated maintaining SPO2 greater than 92% Monitor CBC Qualifiers: Laterality: unspecified laterality Qualified Code(s): J18.9 - Pneumonia, unspecified organism (7) DVT prophylaxis Current Visit: Yes Status: Acute Assessment and plan: Patient is on heparin subcutaneous (8) CKD (chronic kidney disease) Current Visit: Yes Status: Acute Assessment and plan: Patient has a history of CK D secondary to only one functioning kidney- threatening is around baseline We will continue to monitor creatinine Renal dose antibiotics Avoid nephrotoxins Qualifiers: Chronic kidney disease stage: stage 3 (moderate) Qualified Code(s): N18.3 - Chronic kidney disease, stage 3 (moderate) - Time Spent With Patient less than 15 minutes - Subjective Interval history: Presently patient denies any chest pain or shortness of breath. No wheezing she continues to have cough however she states that the sputum production has decreased and less green. No fevers or chills good appetite. Discussed plan with patient she verbalized understanding - Constitutional Vitals: Temp Pulse Resp BP Pulse Ox 97.3 F L 67 16 131/69 93 07/31/17 08:05 07/31/17 08:05 07/31/17 08:05 07/31/17 08:05 07/31/17 08:05 General appearance: Present: A&O X 3, no acute distress, answers questions appropriately - Head Head exam: Present: atraumatic, normocephalic - Eye Eye exam: Present: PERRL, conjuntiva pink, sclera anicteric Pupils: Present: PERRL - Neck Neck exam general surgery: Present: supple, trachea midline. Absent: lymphadenopathy - Respiratory Respiratory exam: Present: CTAB. Absent: accessory muscle use, rales, rhonchi, wheezes - Cardiovascular Cardiovascular exam: Present: RRR, +S1, +S2. Absent: diastolic murmur, gallop, rubs, systolic murmur - GI/Abdominal GI/Abdominal exam: Present: normal bowel sounds, soft, no peritoneal signs. Absent: distended, tenderness - Extremities Exam Extremities exam: Present: warm, radial pulses palpable and symmetrical. Absent : calf tenderness, cyanotic, pedal edema - Neurological Exam Neurological exam: Present: CN II-XII intact, oriented X3, no focal deficits. Absent: pronater drift, facial droop, speech deficit - Skin Skin exam: Present: dry, intact Internal Medicine: Result - Labs CBC & Chem 7: 07/31/17 05:02 07/31/17 05:02 Labs: Short CBC 07/31/17 Range/Units 05:02 WBC 18.0 H (4.3-11.1) K/mcL Hgb 11.3 L (11.5-15.4) g/dL Hct 36.3 (35.3-44.9) % Plt Count 241 (140-400) K/mcL Neutrophils # 12.7 H (1.6-8.9) K/mcL BMP 07/31/17 05:02 Sodium 139 Potassium 3.8 Chloride 108 H Carbon Dioxide 24 BUN 40 H Creatinine 1.30 H Glucose 157 H Calcium 9.4 Consult Discharge Plan - Plan Referrals: Ozzy Oleary MD [Primary Care Provider] -
[2017-07-31] MEDS: Acetaminophen 325 MG TABLET PO PRN (21:19)
[2017-08-01] MEDS: Ipratropium/Albuterol Neb 3 ML IH SCH ×4 (03:34→21:48)
[2017-08-01] MEDS: *HR* Heparin 5,000 UNIT/ML VIAL SQ SCH ×2 (05:45→16:55)
[2017-08-01 05:55] LABS: Basophils # 0.1 K/mcL (0.0-0.2); Basophils % 0.4 %; Eosinophils % 0.1 %; Hematocrit 35.8 % (35.3-44.9); Hemoglobin 11.5 g/dL (11.5-15.4); Immature Granulocytes % 3.7 % (0-4); Lymphocytes # 3.1 K/mcL (0.6-4.6); Lymphocytes % 19.1 %; Mean Corpuscular HGB Conc 32.1 g/dL (31.6-35.5); Mean Corpuscular Hemoglobin 27.8 pg (28.0-33.3); Mean Corpuscular Volume 86.5 fL (83.0-100.0); Mean Platelet Volume 9.3 fL (9.4-12.4); Monocytes # 0.8 K/mcL (0.0-1.3); Monocytes % 5.1 %; Neutrophils # 11.7 K/mcL (1.6-8.9); Platelet Count 253 K/mcL (140-400); Red Blood Count 4.14 M/mcL (3.82-4.97); Red Cell Distribution Width 15.1 % (11.5-14.5); Segmented Neutrophils % 71.6 %
[2017-08-01 06:22] LABS: BUN/Creatinine Ratio 32 (6-26); Blood Urea Nitrogen 34 mg/dL (8-23); Calcium 9.1 mg/dL (8.6-10.3); Carbon Dioxide 23 mEq/L (23-29); Chloride 108 mEq/L (98-107); Glucose 150 mg/dL (70-105); Osmolality,Calculated 296 (280-300); Potassium 3.8 mEq/L (3.5-5.1); Sodium 138 mEq/L (136-145); eGFR For African Americans > 60 (> 60); eGFR For Non-African Americans 50 (> 60)
[2017-08-01] MEDS: Insulin LISPRO 300 UNITS/3 ML VIAL SQ SCH ×4 (08:39→20:44)
[2017-08-01] MEDS: predniSONE 20 MG TABLET PO SCH (08:42)
[2017-08-01] MEDS: predniSONE 10 MG TABLET PO SCH (08:43)
[2017-08-01] MEDS: Multivit/Ca/Min/Fe/FA 1 TAB TABLET PO SCH (08:44)
[2017-08-01] MEDS: ALPRAZolam 0.25 MG TABLET PO SCH ×4 (08:44→20:44)
[2017-08-01] MEDS: Aspirin Enteric Coated 81 MG Tablet PO SCH (08:44)
[2017-08-01] MEDS: Valsartan 160 MG TABLET PO SCH (08:44)
[2017-08-01] MEDS: Isosorbide MONOnitrate (24 HR) 60 MG TAB.ER.24H PO SCH (08:44)
--- NOTE | 2017-08-01 10:05 | Internal Med Progress Note ---
Date of Encounter: 08/01/17 Time of Encounter: 10:03 - Assessment and plan (1) COPD exacerbation Current Visit: Yes Status: Acute Assessment and plan: Patient continues to have a moist cough with light green sputum production will continue with bronchodilators Continuous steroids Patient is very short of breath on exertion we will have nursing staff ambulate the patient and do a 6 minute walk (2) Chest pain Current Visit: Yes Status: Acute Assessment and plan: Cardiac troponins have been negative Echo reveals EF assisted percent mild left ventricular diastolic dysfunction normal right ventricular structure and function mid concentric left ventricular hypertrophy no evidence of pulmonary hypertension Suspect that this is more pleuritic pain Qualifiers: Chest pain type: unspecified Qualified Code(s): R07.9 - Chest pain, unspecified (3) Diabetes mellitus Current Visit: No Status: Chronic Assessment and plan: Accu-Cheks before meals at bedtime with sliding scale insulin Qualifiers: Diabetes mellitus type: type 2 Diabetes mellitus fci insulin use: without fci use Diabetes mellitus complication status: with kidney complications Diabetes mellitus complication detail: with chronic kidney disease Chronic kidney disease stage: stage 3 (moderate) Qualified Code(s): E11.22 - Type 2 diabetes mellitus with diabetic chronic kidney disease; N18.3 - Chronic kidney disease, stage 3 (moderate); N18.3 - Chronic kidney disease, stage 3 (moderate) (4) CAD (coronary artery disease) Current Visit: No Status: Chronic Assessment and plan: No chest pain voiced at this time will continue with home medications of aspirin beta sharon and statin Qualifiers: Coronary Disease-Associated Artery/Lesion type: [place] artery [place] vs. transplanted heart: [place] heart Associated angina: without angina Qualified Code(s): I25.10 - Atherosclerotic heart disease of [place] coronary artery without angina pectoris (5) Leukocytosis Current Visit: Yes Status: Acute Assessment and plan: WBC trending down. She is afebrile, she is not tachycardic. She is on steroids which may be contributing to the rise however we will obtain urinalysis as well as sputum culture preliminary with gram-positive cocci. Respiratory panel was negative urinalysis was negative Continue with Levaquin Qualifiers: Leukocytosis type: unspecified Qualified Code(s): D72.829 - Elevated white blood cell count, unspecified (6) Community acquired pneumonia Current Visit: Yes Status: Acute Assessment and plan: 1 patient originally presented with increasing shortness of breath as well as cough with green sputum production-she is requiring oxygen supplementation she is approximately 90% on room air -normally does not require home oxygen-chest x- ray with no acute process-patient has a history of COPD white count increased to 21,000 suspect possible pneumonia-feeling culture just showed gram-positive cocci-we will continue with Levaquin -Continue with oxygen titrated maintaining SPO2 greater than 92%-patient is extremely short of breath on exertion. We will nursing and sly [place] and do 6 minute walk test Monitor CBC Qualifiers: Laterality: unspecified laterality Qualified Code(s): J18.9 - Pneumonia, unspecified organism (7) DVT prophylaxis Current Visit: Yes Status: Acute Assessment and plan: Patient is on heparin subcutaneous (8) CKD (chronic kidney disease) Current Visit: Yes Status: Acute Assessment and plan: Patient has a history of CK D secondary to only one functioning kidney- creatinine around baseline We will continue to monitor creatinine Renal dose antibiotics Avoid nephrotoxins Qualifiers: Chronic kidney disease stage: stage 3 (moderate) Qualified Code(s): N18.3 - Chronic kidney disease, stage 3 (moderate) - Time Spent With Patient less than 15 minutes - Subjective Interval history: Presently patient denies any chest pain or shortness of breath. No wheezing she continues to have cough however she states that the sputum production has decreased and less green. No fevers or chills good appetite. She is very SOB on exertion. We will have walk test her oxygen use at home. - Constitutional Vitals: Temp Pulse Resp BP Pulse Ox 97.7 F 72 16 109/68 93 08/01/17 07:31 08/01/17 07:31 08/01/17 07:31 08/01/17 07:31 08/01/17 07:31 General appearance: Present: A&O X 3, no acute distress, answers questions appropriately - Head Head exam: Present: atraumatic, normocephalic - Eye Eye exam: Present: PERRL, conjuntiva pink, sclera anicteric Pupils: Present: PERRL - Neck Neck exam general surgery: Present: supple, trachea midline. Absent: lymphadenopathy - Respiratory Respiratory exam: Present: CTAB. Absent: accessory muscle use, rales, rhonchi, wheezes - Cardiovascular Cardiovascular exam: Present: RRR, +S1, +S2. Absent: diastolic murmur, gallop, rubs, systolic murmur - GI/Abdominal GI/Abdominal exam: Present: normal bowel sounds, soft, no peritoneal signs. Absent: distended, tenderness - Extremities Exam Extremities exam: Present: warm, radial pulses palpable and symmetrical. Absent : calf tenderness, cyanotic, pedal edema - Neurological Exam Neurological exam: Present: CN II-XII intact, oriented X3, no focal deficits. Absent: pronater drift, facial droop, speech deficit - Skin Skin exam: Present: dry, intact Internal Medicine: Result - Labs CBC & Chem 7: 08/01/17 05:15 08/01/17 05:15 Labs: Short CBC 08/01/17 Range/Units 05:15 WBC 16.4 H (4.3-11.1) K/mcL Hgb 11.5 (11.5-15.4) g/dL Hct 35.8 (35.3-44.9) % Plt Count 253 (140-400) K/mcL Neutrophils # 11.7 H (1.6-8.9) K/mcL BMP 08/01/17 05:15 Sodium 138 Potassium 3.8 Chloride 108 H Carbon Dioxide 23 BUN 34 H Creatinine 1.07 Glucose 150 H Calcium 9.1 Consult Discharge Plan - Plan Referrals: Ozzy Oleary MD [Primary Care Provider] -
[2017-08-01] MEDS: Tiotropium 18 MCG inhalation IH SCH (10:16)
[2017-08-01] MEDS: Acetaminophen 325 MG TABLET PO PRN (23:45)
[2017-08-02] MEDS: Ipratropium/Albuterol Neb 3 ML IH SCH ×4 (03:23→22:07)
[2017-08-02] MEDS: *HR* Heparin 5,000 UNIT/ML VIAL SQ SCH ×2 (05:12→17:24)
[2017-08-02 06:34] LABS: Basophils # 0.1 K/mcL (0.0-0.2); Basophils % 0.6 %; Eosinophils # 0.1 K/mcL (0.0-0.6); Eosinophils % 0.5 %; Hematocrit 35.2 % (35.3-44.9); Hemoglobin 11.1 g/dL (11.5-15.4); Immature Platelets 2.1 % (1.1-6.1); Lymphocytes # 4.6 K/mcL (0.6-4.6); Lymphocytes % 30.2 %; Mean Corpuscular HGB Conc 31.5 g/dL (31.6-35.5); Mean Corpuscular Hemoglobin 27.7 pg (28.0-33.3); Mean Corpuscular Volume 87.8 fL (83.0-100.0); Mean Platelet Volume 9.6 fL (9.4-12.4); Monocytes # 0.8 K/mcL (0.0-1.3); Monocytes % 5.2 %; Nucleated Red Blood Cells 0.5 /100 WBC (0); Platelet Count 271 K/mcL (140-400); Red Blood Count 4.01 M/mcL (3.82-4.97); Red Cell Distribution Width 15.1 % (11.5-14.5); Segmented Neutrophils % 58.5 %
[2017-08-02 07:14] LABS: Calcium 8.9 mg/dL (8.6-10.3); Potassium 3.6 mEq/L (3.5-5.1)
[2017-08-02] MEDS: Insulin LISPRO 300 UNITS/3 ML VIAL SQ SCH ×4 (07:58→20:47)
[2017-08-02] MEDS: Multivit/Ca/Min/Fe/FA 1 TAB TABLET PO SCH (07:58)
[2017-08-02] MEDS: levoFLOXacin 500 MG TABLET PO SCH (07:59)
[2017-08-02] MEDS: predniSONE 10 MG TABLET PO SCH (07:59)
[2017-08-02] MEDS: Isosorbide MONOnitrate (24 HR) 60 MG TAB.ER.24H PO SCH (07:59)
[2017-08-02] MEDS: Valsartan 160 MG TABLET PO SCH (07:59)
[2017-08-02] MEDS: Aspirin Enteric Coated 81 MG Tablet PO SCH (08:00)
[2017-08-02] MEDS: ALPRAZolam 0.25 MG TABLET PO SCH ×4 (08:00→20:46)
--- NOTE | 2017-08-02 09:56 | Internal Med Progress Note ---
Date of Encounter: 08/02/17 Time of Encounter: 09:54 - Assessment and plan (1) COPD exacerbation Current Visit: Yes Status: Acute Assessment and plan: Patient continues to have a moist cough with light green sputum production will continue with bronchodilators Continuous steroids-to taper Patient is very short of breath on exertion we will have nursing staff ambulate the patient and do a 6 minute walk- anticipate discharge tomorrow (2) Chest pain Current Visit: Yes Status: Acute Assessment and plan: Cardiac troponins have been negative Echo reveals EF assisted percent mild left ventricular diastolic dysfunction normal right ventricular structure and function mid concentric left ventricular hypertrophy no evidence of pulmonary hypertension Suspect that this is more pleuritic pain Qualifiers: Chest pain type: unspecified Qualified Code(s): R07.9 - Chest pain, unspecified (3) Diabetes mellitus Current Visit: No Status: Chronic Assessment and plan: Accu-Cheks before meals at bedtime with sliding scale insulin Qualifiers: Diabetes mellitus type: type 2 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 technician insulin use: without property technician use Diabetes mellitus complication status: with kidney complications Diabetes mellitus complication detail: with chronic kidney disease Chronic kidney disease stage: stage 3 (moderate) Qualified Code(s): E11.22 - Type 2 diabetes mellitus with diabetic chronic kidney disease; N18.3 - Chronic kidney disease, stage 3 (moderate); N18.3 - Chronic kidney disease, stage 3 (moderate) (4) CAD (coronary artery disease) Current Visit: No Status: Chronic Assessment and plan: continue ASA BB Nitro for CP Qualifiers: Coronary Disease-Associated Artery/Lesion type: [place] artery [place] vs. transplanted heart: [place] heart Associated angina: without angina Qualified Code(s): I25.10 - Atherosclerotic heart disease of [place] coronary artery without angina pectoris (5) Leukocytosis Current Visit: Yes Status: Acute Assessment and plan: WBC trending down. She is afebrile, she is not tachycardic. She is on steroids which may be contributing to the rise Respiratory panel was negative urinalysis was negative Continue with Levaquin Qualifiers: Leukocytosis type: unspecified Qualified Code(s): D72.829 - Elevated white blood cell count, unspecified (6) Community acquired pneumonia Current Visit: Yes Status: Acute Assessment and plan: 1 patient originally presented with increasing shortness of breath as well as cough with green sputum production-she is requiring oxygen supplementation she is approximately 90% on room air -normally does not require home oxygen-chest x- ray with no acute process-patient has a history of COPD white count increased to 21,000 suspect possible pneumonia-feeling culture just showed gram-positive cocci-we will continue with Levaquin -Continue with oxygen titrated maintaining SPO2 greater than 92%-patient is extremely short of breath on exertion. We will nursing ambulate and do 6 minute walk test- anticipate discharge tomorrow Monitor CBC Qualifiers: Laterality: unspecified laterality Qualified Code(s): J18.9 - Pneumonia, unspecified organism (7) DVT prophylaxis Current Visit: Yes Status: Acute Assessment and plan: Patient is on heparin subcutaneous (8) CKD (chronic kidney disease) Current Visit: Yes Status: Acute Assessment and plan: Patient has a history of CK D secondary to only one functioning kidney- creatinine around baseline We will continue to monitor creatinine Renal dose antibiotics Avoid nephrotoxins Qualifiers: Chronic kidney disease stage: stage 3 (moderate) Qualified Code(s): N18.3 - Chronic kidney disease, stage 3 (moderate) - Time Spent With Patient less than 15 minutes - Subjective Interval history: Presently patient denies any chest pain or shortness of breath. No wheezing she continues to have cough however she states that the sputum production has decreased and less green. No fevers, con't to be SOB on exertion. walk test for home O2 - Constitutional Vitals: Temp Pulse Resp BP Pulse Ox 97.7 F 67 18 158/81 92 08/02/17 06:47 08/02/17 06:47 08/02/17 06:47 08/02/17 06:47 08/02/17 06:47 General appearance: Present: A&O X 3, no acute distress, answers questions appropriately - Head Head exam: Present: atraumatic, normocephalic - Eye Eye exam: Present: PERRL, conjuntiva pink, sclera anicteric Pupils: Present: PERRL - Neck Neck exam general surgery: Present: supple, trachea midline. Absent: lymphadenopathy - Respiratory Respiratory exam: Present: CTAB. Absent: accessory muscle use, rales, rhonchi, wheezes - Cardiovascular Cardiovascular exam: Present: RRR, +S1, +S2. Absent: diastolic murmur, gallop, rubs, systolic murmur - GI/Abdominal GI/Abdominal exam: Present: normal bowel sounds, soft, no peritoneal signs. Absent: distended, tenderness - Extremities Exam Extremities exam: Present: warm, radial pulses palpable and symmetrical. Absent : calf tenderness, cyanotic, pedal edema - Neurological Exam Neurological exam: Present: CN II-XII intact, oriented X3, no focal deficits. Absent: pronater drift, facial droop, speech deficit - Skin Skin exam: Present: dry, intact Internal Medicine: Result - Labs CBC & Chem 7: 08/02/17 05:51 08/02/17 05:51 Labs: Short CBC 08/02/17 Range/Units 05:51 WBC 15.3 H (4.3-11.1) K/mcL Hgb 11.1 L (11.5-15.4) g/dL Hct 35.2 L (35.3-44.9) % Plt Count 271 (140-400) K/mcL Neutrophils # 9.0 H (1.6-8.9) K/mcL BMP 08/02/17 05:51 Sodium 139 Potassium 3.6 Chloride 108 H Carbon Dioxide 25 BUN 33 H Creatinine 1.26 H Glucose 191 H Calcium 8.9 Consult Discharge Plan - Plan Referrals: Ozzy Oleary MD [Primary Care Provider] -
[2017-08-02] MEDS: Tiotropium 18 MCG inhalation IH SCH (11:07)
[2017-08-02] MEDS: Acetaminophen 325 MG TABLET PO PRN ×2 (15:45→23:46)
[2017-08-03] MEDS: Ipratropium/Albuterol Neb 3 ML IH SCH ×3 (04:04→15:50)
[2017-08-03 05:01] LABS: Basophils # 0.1 K/mcL (0.0-0.2); Basophils % 0.5 %; Eosinophils # 0.1 K/mcL (0.0-0.6); Eosinophils % 0.5 %; Hematocrit 36.7 % (35.3-44.9); Hemoglobin 11.4 g/dL (11.5-15.4); Immature Granulocytes % 5.2 % (0-4); Lymphocytes # 4.2 K/mcL (0.6-4.6); Mean Corpuscular HGB Conc 31.1 g/dL (31.6-35.5); Mean Corpuscular Hemoglobin 27.3 pg (28.0-33.3); Mean Platelet Volume 9.3 fL (9.4-12.4); Monocytes # 0.8 K/mcL (0.0-1.3); Monocytes % 5.6 %; Nucleated Red Blood Cells 0.3 /100 WBC (0); Platelet Count 265 K/mcL (140-400); Red Blood Count 4.17 M/mcL (3.82-4.97); Red Cell Distribution Width 15.4 % (11.5-14.5); Segmented Neutrophils % 60.2 %
[2017-08-03 05:25] LABS: Calcium 8.9 mg/dL (8.6-10.3); Potassium 3.4 mEq/L (3.5-5.1)
[2017-08-03] MEDS: *HR* Heparin 5,000 UNIT/ML VIAL SQ SCH (05:32)
[2017-08-03 06:12] LABS: Anisocytosis 1+ (Not Present); Platelet Estimate Normal (Normal); Poikilocytosis 1+ (Not Present)
[2017-08-03] MEDS: Insulin LISPRO 300 UNITS/3 ML VIAL SQ SCH ×2 (07:31→12:58)
[2017-08-03] MEDS: Tiotropium 18 MCG inhalation IH SCH (07:57)
--- NOTE | 2017-08-03 08:52 | Electrocardiograph Report ---
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
[2017-08-03] MEDS: predniSONE 10 MG TABLET PO SCH (09:03)
[2017-08-03] MEDS: Multivit/Ca/Min/Fe/FA 1 TAB TABLET PO SCH (09:03)
[2017-08-03] MEDS: ALPRAZolam 0.25 MG TABLET PO SCH ×2 (09:04→12:58)
[2017-08-03] MEDS: Valsartan 160 MG TABLET PO SCH (09:04)
[2017-08-03] MEDS: Isosorbide MONOnitrate (24 HR) 60 MG TAB.ER.24H PO SCH (09:04)
[2017-08-03] MEDS: Aspirin Enteric Coated 81 MG Tablet PO SCH (09:04)
[2017-08-03 11:53] VITALS: BP 136/84
[2017-08-03] MEDS ORDERED: Lactulose Oral Soln 20 GM/30 ML UDC PO SCH (14:30)
--- NOTE | 2017-08-03 15:37 | Discharge Summary ---
- NOTES TO OUTPATIENT PROVIDER Notes to Outpatient Provider: f/u PCP within week Date of Encounter: 08/03/17 Time of Encounter: 15:35 - Discharge Diagnosis (1) COPD exacerbation Priority: Primary Status: Acute (2) Chest pain Priority: Primary Status: Acute Qualifiers: Chest pain type: unspecified Qualified Code(s): R07.9 - Chest pain, unspecified (3) Community acquired pneumonia Priority: Primary Status: Acute Qualifiers: Laterality: unspecified laterality Qualified Code(s): J18.9 - Pneumonia, unspecified organism (4) Leukocytosis Priority: Primary Status: Acute Qualifiers: Leukocytosis type: unspecified Qualified Code(s): D72.829 - Elevated white blood cell count, unspecified (5) CAD (coronary artery disease) Priority: Primary Status: Chronic Qualifiers: Coronary Disease-Associated Artery/Lesion type: [place] artery [place] vs. 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 Vital is a 72 year old female with a history of diabetes, COPD, carotid stenosis status post surgery, chronic kidney disease with lone left functional kidney, CAD status post stents and hypertension who presented to the ER for evaluation of shortness of breath for the past 3 days before admission. She reported a cough with greenish sputum and some chest heaviness but no chest pain. She was afebrile with mild nausea no vomiting. She was found wheezing and treated with steroids and bronchodilator with symptoms significantly improved. She was admitted for COPD exacerbation and chest heaviness to rule out ACS. She is a former smoker. Her COPD exacerbation is being treated with bronchodilators and steroids. She was sent home on a duo neb via nebulizer. Patient remains dyspneic on exertion and needs to pace her activities. She had no O2 needs on her 6 minute walk test. Chest pain was more pleuritic in nature. Cardiac troponins were negative, echo revealed EF of 70% with normal LV chamber size and function. Mild left ventricular diastolic dysfunction and normal right ventricular structure and function. No evidence of pulmonary hypertension no significant valvular dysfunction. She will continue her aspirin and beta sharon with nitroglycerin for chest pain. Leukocytosis was trending down and was likely secondary to steroid therapy. Potassium was replaced. Resume her diabetic diet and normal diabetic medication routine on discharge. She will continue Levaquin to complete her course on discharge. Her creatinine was near normal baseline. She will follow-up with her primary care physician as directed. Discharge discussed with: patient, nurse, social work - Time Spent with Patient Total time spent providing and/or coordinating discharge services: Less than 30 minutes - Discharge Medications Prescriptions: Ipratropium/Albuterol Neb [Duoneb] 3 ml IH Q6H PRN #30 vial.neb PRN Reason: Wheezing levoFLOXacin [Levaquin] 500 mg PO Q48H #5 tablet predniSONE [Prednisone] 10 mg PO DAILY #12 tab.ds.pk Home Medications: ALPRAZolam [Xanax 0.25 MG Tablet] 0.25 mg PO QID 08/09/15 [History] Aspirin [Adult Low Dose Aspirin EC] 81 mg PO DAILY 08/09/15 [History] Nitroglycerin [Nitrostat] 0.4 mg SL Q5M PRN 08/09/15 [History] Paroxetine HCl [Paroxetine] 40 mg PO QAM 08/09/15 [History] Pantoprazole Sodium [Protonix] 40 mg PO DAILY 14 Days tablet. 09/07/15 [Rx] Atorvastatin [Lipitor] 40 mg PO HS 07/31/16 [History] Tiotropium [Spiriva] 18 mcg IH DAILY 07/31/16 [History] Albuterol Sulfate [Albuterol Inhaler] 2 puff IH Q4HR PRN 08/04/16 [History] Metoprolol [Lopressor] 25 mg PO BID 08/04/16 [History] Isosorbide MONOnitrate (24 HR) [Imdur] 60 mg PO DAILY 07/28/17 [History] Multivitamin [One Daily Multivitamin] 1 each PO DAILY 07/28/17 [History] Promethazine/Dextromethorphan [Promethazine-Dm Syrup] 5 ml PO Q4-6H PRN #120 ml 07/28/17 [Rx] Sitagliptin Phosphate [Januvia] 50 mg PO DAILY 07/28/17 [History] Valsartan [Diovan] 160 mg PO DAILY 07/28/17 [History] Ipratropium/Albuterol Neb [Duoneb] 3 ml IH Q6H PRN #30 vial.neb 08/03/17 [Rx] levoFLOXacin [Levaquin] 500 mg PO Q48H #5 tablet 08/03/17 [Rx] predniSONE [Prednisone] 10 mg PO DAILY #12 tab.ds.pk 08/03/17 [Rx] Allergies/Adverse Reactions: 3 Allergy/AdvReac Type Severity Reaction Status Date / Time ondansetron Allergy Hives Verified 07/28/17 18:39 [From Zofran (as hydrochloride)] clavulanic acid AdvReac Heartburn Verified 07/28/17 18:39 Penicillins AdvReac Vomiting Verified 07/28/17 18:39 [id number] Reductase AdvReac Muscle Pain Verified 07/28/17 18:39 Inhibitor [Statins] Ticarcillin AdvReac Vomiting Verified 07/28/17 18:39 Date of admission: 07/30/17 18:04 Primary care physician: Ozzy Oleary MD Discharging clinician: Ursula Montesinos Anticipated date of discharge: 08/03/17 - Constitutional Vitals: Temp Pulse Resp BP Pulse Ox 97.9 F 73 18 136/84 93 08/03/17 11:50 08/03/17 11:50 08/03/17 11:50 08/03/17 11:50 08/03/17 11:50 General appearance: Present: cooperative, A&O X 3, pleasant, no acute distress, answers questions appropriately - Head Head exam: Present: atraumatic, normocephalic - Eye Eye exam: Present: PERRL, conjuntiva pink, sclera anicteric Pupils: Present: PERRL - Neck Neck exam general surgery: Present: supple, trachea midline. Absent: lymphadenopathy - Respiratory Respiratory exam: Present: decreased breath sounds, CTAB. Absent: accessory muscle use, rales, rhonchi, wheezes - Cardiovascular Cardiovascular exam: Present: RRR, +S1, +S2. Absent: diastolic murmur, gallop, rubs, systolic murmur - GI/Abdominal GI/Abdominal exam: Present: normal bowel sounds, soft, no peritoneal signs. Absent: distended, tenderness - Extremities Exam Extremities exam: Present: warm, radial pulses palpable and symmetrical. Absent : calf tenderness, cyanotic, pedal edema - Neurological Exam Neurological exam: Present: alert, CN II-XII intact, normal gait, oriented X3, no focal deficits. Absent: pronater drift, facial droop, speech deficit - Skin Skin exam: Present: dry, intact, normal color, warm - Patient Status Disposition: Home, Self-Care Condition: Fair Overall status at discharge: patient is progressing back to baseline - Discharge Instructions Instructions: Chest Pain (DC), Epistaxis (DC), Chronic Obstructive Pulmonary Disease (DC), Pneumonia (DC) Follow Up With: Ozzy Oleary MD [Primary Care Provider] - 08/09/17 9:30 am - Diet and Activity Activity: resume usual activities as tolerated Diet: advance to your usual diet, diabetic diet, low fat, low cholesterol
== END 2017-08-03 16:10 | disposition home or self-care (01) | DRG 190 ==
LOC: EMEROO 18:34 → 3BNU 18:34
PROVIDERS: ADMIT Internal Medicine; ATTEND Registered Nurse

== ENCOUNTER 2018-03-22 17:26 | Inpatient (IN) ==
[2018-03-22] MEDS ORDERED: Ipratropium/Albuterol Neb 3 ML IH ONE (18:19)
[2018-03-22] MEDS ORDERED: predniSONE 20 MG TABLET PO ONE (18:20)
--- NOTE | 2018-03-22 18:22 | Emergency Department Note ---
Disposition Clinical Impression: COPD exacerbation Disposition: Admitted As Inpatient Condition: Good Forms: ED Satisfaction Letter Time of Disposition: 20:37 General Adult HPI - General Chief complaint: ED Shortness of Breath/Dyspnea Stated complaint: JESSE x 1wk Time Seen by Provider: 03/22/18 18:14 Source: patient Mode of arrival: ambulatory Limitations: no limitations - History of Present Illness HPI Narrative: This is 72-year-old female with history of COPD who reports increased cough and shortness of breath starting 7 days prior to arrival. She has had no change in sputum character. She reports pain just below the right scapula . No fevers. Pain Scale: 6 - Related Data Home Medications Medication Instructions Recorded Confirmed ALPRAZolam [Xanax 0.25 MG Tablet] 0.25 mg PO QID 08/09/15 07/28/17 Aspirin [Adult Low Dose Aspirin EC] 81 mg PO DAILY 08/09/15 07/28/17 Nitroglycerin [Nitrostat] 0.4 mg SL Q5M PRN 08/09/15 07/28/17 Paroxetine HCl [Paroxetine] 40 mg PO QAM 08/09/15 07/28/17 Atorvastatin [Lipitor] 40 mg PO HS 07/31/16 07/28/17 Tiotropium [Spiriva] 18 mcg IH DAILY 07/31/16 07/28/17 Albuterol Sulfate [Albuterol 2 puff IH Q4HR PRN 08/04/16 07/28/17 Inhaler] Metoprolol [Lopressor] 25 mg PO BID 08/04/16 07/28/17 Isosorbide MONOnitrate (24 HR) 60 mg PO DAILY 07/28/17 07/28/17 [Imdur] Multivitamin [One Daily 1 each PO DAILY 07/28/17 07/28/17 Multivitamin] Sitagliptin Phosphate [Januvia] 50 mg PO DAILY 07/28/17 07/28/17 Valsartan [Diovan] 160 mg PO DAILY 07/28/17 07/28/17 Previous Rx's Medication Instructions Recorded Pantoprazole Sodium [Protonix] 40 mg PO DAILY 14 Days tablet. 09/07/15 Promethazine/Dextromethorphan 5 ml PO Q4-6H PRN #120 ml 07/28/17 [Promethazine-Dm Solution] Ipratropium/Albuterol Neb [Duoneb] 3 ml IH Q6H PRN #30 vial.neb 08/03/17 levoFLOXacin [Levaquin] 500 mg PO Q48H #5 tablet 08/03/17 predniSONE [Prednisone] 10 mg PO DAILY #12 tab.ds.pk 08/03/17 Allergies Allergy/AdvReac Type Severity Reaction Status Date / Time ondansetron Allergy Hives Verified 07/28/17 18:39 [From Zofran (as hydrochloride)] clavulanic acid AdvReac Heartburn Verified 07/28/17 18:39 Penicillins AdvReac Vomiting Verified 07/28/17 18:39 Vtolgho-Iby-Jzf Reductase AdvReac Muscle Pain Verified 07/28/17 18:39 Inhibitor [Statins] Ticarcillin AdvReac Vomiting Verified 07/28/17 18:39 All systems ED: reviewed and negative except as stated. Respiratory: Reports: cough, dyspnea Past Medical History - Past Medical History Medical history: Reports: COPD, coronary artery disease, hypertension, other Surgical history: Reports: appendectomy, cholecystectomy, hysterectomy Psychiatric history: Reports: anxiety - Social History Smoking Status: Former smoker Smokeless Tobacco Status: No Alcohol use: Reports: none Drug use: Reports: none Physical Exam - General Limitations: no limitations General appearance: alert, in distress (In mild to moderate respiratory distress) - Head Head exam: atraumatic, normocephalic, normal inspection - Eye Eye exam: Present: normal appearance, PERRL, EOMI - Chest Chest inspection: Present: normal inspection, symmetric chest wall rise - Respiratory Respiratory exam: Present: respiratory distress (Mild respiratory distress), wheezes (There are expiratory wheezes in all irvin), other (There are coarse rhonchi in all irvin, worst in the left apex) - Cardiovascular Cardiovascular exam: Present: regular rate, normal rhythm, normal heart sounds - Abdominal Exam Abdominal exam: Present: soft, Non-Tender. Absent: tenderness, distention, guarding, rebound, rigidity - Extremities Exam Extremities exam: Present: normal inspection, full ROM. Absent: tenderness, pedal edema - Neurological Exam Neurological exam: Present: alert, oriented X3, CN II-XII intact - Psychiatric Psychiatric exam: Present: normal affect, normal mood - Skin Skin exam: Present: warm, dry, intact, normal color Course Course Narrative: This is a 72-year-old female with concern for COPD exacerbation versus pneumonia Vital Signs Temperature 98.1 F 03/22/18 17:29 Pulse Rate 86 03/22/18 17:29 Respiratory Rate 20 03/22/18 17:29 Blood Pressure 160/81 03/22/18 17:29 O2 Sat by Pulse Oximetry 97 03/22/18 17:29 Temperature 98.1 F 03/22/18 18:23 Pulse Rate 76 03/22/18 20:16 Respiratory Rate 19 03/22/18 20:16 Blood Pressure 107/93 03/22/18 20:16 O2 Sat by Pulse Oximetry 94 03/22/18 20:16 Oxygen Delivery Oxygen Delivery Room Air Medical Decision Making - MDM Narrative Medical decision making narrative: This is a 72-year-old female with what appears to be a COPD exacerbation. She was slightly improved after initial treatments prednisone, and I discussed her case with the on-call hospitalist, who accepted her for observation. - Lab Data Lab results reviewed: Yes I reviewed the patient's lab results. Lab results narrative: CBC was unremarkable BMP showed renal insufficiency Troponin was low Result diagrams: 03/22/18 18:30 03/22/18 18:30 Lab Results 03/22/18 03/22/18 03/22/18 Range/Units 18:30 18:30 18:38 WBC 7.9 (4.3-11.1) K/mcL RBC 5.26 H (3.82-4.97) M/mcL Hgb 14.4 (11.5-15.4) g/dL Hct 45.9 H (35.3-44.9) % MCV 87.3 (83.0-100.0) fL MCH 27.4 L (28.0-33.3) pg MCHC 31.4 L (31.6-35.5) g/dL RDW 16.3 H (11.5-14.5) % Plt Count 202 (140-400) K/mcL MPV 9.9 (9.4-12.4) fL Immature Gran % 0.4 (0-4) % Seg Neutrophils % 59.5 % Lymphocytes % 29.8 % Monocytes % 5.3 % Eosinophils % 4.1 % Basophils % 0.9 % Neutrophils # 4.7 (1.6-8.9) K/mcL Lymphocytes # 2.4 (0.6-4.6) K/mcL Monocytes # 0.4 (0.0-1.3) K/mcL Eosinophils # 0.3 (0.0-0.6) K/mcL Basophils # 0.1 (0.0-0.2) K/mcL Sodium 139 (136-145) mEq/L Potassium 4.6 (3.5-5.1) mEq/L Chloride 102 (98-107) mEq/L Carbon Dioxide 26 (23-29) mEq/L BUN 17 (8-23) mg/dL Creatinine 1.46 H (0.60-1.20) mg/dL Est GFR ( Amer) 43 L (> 60) Est GFR (Non-Af Amer) 35 L (> 60) BUN/Creatinine Ratio 12 (6-26) Glucose 99 (70-105) mg/dL Calculated Osmolality 290 (280-300) Lactic Acid 1.2 (0.5-2.2) mmol/L Calcium 10.3 (8.6-10.3) mg/dL Troponin I < 0.03 (< 0.04) ng/mL - Radiology Data Radiology results reviewed: Yes I reviewed the patient's radiology results. Chest x-ray showed no pneumonia - EKG Data EKG #1 EKG attestation: Yes I reviewed and interpreted this EKG. EKG results narrative: ECG showed sinus rhythm, 80 bpm, slight ST depressions in 2, V5 and V6, normal intervals, normal axis, ST changes are similar to or less than prior dated 07/28/2017 Critical Care Time Critical Care Time: Yes Total Critical Care Time: 15 Attestation: 15 minutes of critical care time was invested independent of separately billable procedures
[2018-03-22 18:52] LABS: Basophils # 0.1 K/mcL (0.0-0.2); Basophils % 0.9 %; Eosinophils # 0.3 K/mcL (0.0-0.6); Eosinophils % 4.1 %; Hematocrit 45.9 % (35.3-44.9); Hemoglobin 14.4 g/dL (11.5-15.4); Immature Granulocytes % 0.4 % (0-4); Lymphocytes # 2.4 K/mcL (0.6-4.6); Lymphocytes % 29.8 %; Mean Corpuscular HGB Conc 31.4 g/dL (31.6-35.5); Mean Corpuscular Hemoglobin 27.4 pg (28.0-33.3); Mean Corpuscular Volume 87.3 fL (83.0-100.0); Mean Platelet Volume 9.9 fL (9.4-12.4); Monocytes # 0.4 K/mcL (0.0-1.3); Monocytes % 5.3 %; Neutrophils # 4.7 K/mcL (1.6-8.9); Platelet Count 202 K/mcL (140-400); Red Blood Count 5.26 M/mcL (3.82-4.97); Red Cell Distribution Width 16.3 % (11.5-14.5); Segmented Neutrophils % 59.5 %
[2018-03-22 19:10] LABS: Troponin I < 0.03 ng/mL (< 0.04)
[2018-03-22 19:18] LABS: BUN/Creatinine Ratio 12 (6-26); Blood Urea Nitrogen 17 mg/dL (8-23); Calcium 10.3 mg/dL (8.6-10.3); Carbon Dioxide 26 mEq/L (23-29); Chloride 102 mEq/L (98-107); Glucose 99 mg/dL (70-105); Osmolality,Calculated 290 (280-300); Potassium 4.6 mEq/L (3.5-5.1); Sodium 139 mEq/L (136-145); eGFR For Non-African Americans 35 (> 60)
[2018-03-22] MEDS ORDERED: Naloxone 0.4 MG/ML INJ IVP PRN (21:34)
[2018-03-22] MEDS ORDERED: Nitroglycerin 0.4 MG TAB.SUBL SL PRN (21:40)
--- NOTE | 2018-03-22 22:12 | Internal Med History&Physical ---
Date of Encounter: 03/24/18 Time of Encounter: 22:12 Internal Medicine - H&P: HPI Chief complaint: SOB History of present illness: Ms. Vital is a 72 year old female with a history of diabetes, COPD, carotid stenosis status post surgery, chronic kidney disease with lone left functional kidney, CAD status post stents and hypertension who presented to the ER for evaluation of shortness of breath. Patient reports that she has not been able to breathe for the past 4-5 days. Symptoms became worse today while she was grocery shopping at which time she developed a coughing fit and was not able unable to catch her breath. Patient reports that she has been coughing up whitish sputum. She reports subjective fever yesterday. She checked her temperature at the time and found to be 98 degrees. She states that she has been around smokers as well as grandchildren and nephews who have been sick. She does state that she has been sleeping in a recliner because she is been unable to lie flat due to difficulty breathing. Patient is not currently on oxygen. She denies any swelling in her lower extremities. Patient has been using her nebulizer 3 times a day however without any improvement. She does note a little bit of a runny nose. Patient reports taking azithromycin for 3 days as well as Levaquin tablets which she has had from previous. Patient reports feeling much better now after receiving nebulizer treatment in the ED as well as prednisone. Patient denies any chills, nausea, vomiting, diarrhea, chest pain. Past Med Surg Social Fam HX - Past Medical History Medical history: COPD, coronary artery disease, hypertension, other Additional medical history: One kidney, dengenertive disk disease Psychiatric history: anxiety - Past Surgical History Surgical History: appendectomy, cholecystectomy, hysterectomy Additional surgical history: CATARACT, LEFT LEG STENT, CARDIAC STENTS X - 2012 AND 2013, DISCECTOMY, CERVICAL SPINE SURGERY , LEFT CAROTID ENDARTERECTOMY OVIDIO 2016, LEFT ANGIOGRAM 07-31-16. - Social History Smoking Status: Former smoker Smokeless Tobacco Status: No Alcohol use: none Drug use: none - Family History Brother Hx Family Cardiac Disorders: Yes (Open heart sx) Father Living Status: Hx Family Cardiac Disorders: Yes ([place]) Mother Living Status: Hx Family Cardiac Disorders: Yes ([place]) Internal Medicine - H&P: Meds ALPRAZolam [Xanax 0.25 MG Tablet] 0.25 mg PO QID 08/09/15 [History] Nitroglycerin [Nitrostat] 0.4 mg SL Q5M PRN 08/09/15 [History] Pantoprazole Sodium [Protonix] 40 mg PO DAILY 14 Days tablet. 09/07/15 [Rx] Atorvastatin [Lipitor] 40 mg PO HS 07/31/16 [History] Tiotropium [Spiriva] 2 puff IH DAILY PRN 07/31/16 [History] Albuterol Sulfate [Albuterol Inhaler] 2 puff IH Q4HR PRN 08/04/16 [History] Metoprolol [Lopressor] 25 mg PO BID 08/04/16 [History] Isosorbide MONOnitrate (24 HR) [Imdur] 60 mg PO DAILY 07/28/17 [History] Multivitamin [One Daily Multivitamin] 1 each PO DAILY 07/28/17 [History] Sitagliptin Phosphate [Januvia] 50 mg PO DAILY 07/28/17 [History] Ipratropium/Albuterol Neb [Duoneb] 3 ml IH Q6H PRN #30 vial.neb 08/03/17 [Rx] Acetaminophen [Tylenol] 1,000 mg PO Q6HR PRN 03/22/18 [History] Allopurinol [Zyloprim 300 MG] 300 mg PO DAILY 03/22/18 [History] Aspirin [Lo-Dose Aspirin EC] 81 mg PO DAILY 03/22/18 [History] PARoxetine HCl [Paroxetine HCl] 40 mg PO DAILY 03/22/18 [History] Valsartan/Hydrochlorothiazide [Diovan Hct 160-12.5 mg Tab] 1 tab PO DAILY 03/22/18 [History] Allergy/AdvReac Type Severity Reaction Status Date / Time ondansetron Allergy Hives Verified 03/22/18 21:38 [From Zofran (as hydrochloride)] clavulanic acid AdvReac Heartburn Verified 03/22/18 21:38 Penicillins AdvReac Vomiting Verified 03/22/18 21:38 Zhttgre-Jpo-Utd Reductase AdvReac Muscle Pain Verified 03/22/18 21:38 Inhibitor [Statins] Ticarcillin AdvReac Vomiting Verified 03/22/18 21:38 All Systems PM: A 10-system review of systems was performed and is negative for pertinent findings except as documented above in the HPI. - Constitutional Constitutional: no chills, no fever(s), no night sweats - EENT Eyes: no change in vision, no discharge, no pain, no photophobia Ears: no ear discharge, no ear pain, no tinnitus Nose, mouth and throat: no dysphagia, no nasal discharge, no neck pain, no sore throat - Cardiovascular Cardiovascular ROS IM: no chest pain, no diaphoresis, no dyspnea, no lightheadedness, no palpitations, no syncope - Respiratory Respiratory: no cough, no dyspnea, no wheezing, no excessive phlegm production - Gastrointestinal Gastrointestinal: no abdominal pain, no diarrhea, no hematemesis, no hematochezia, no melena, no nausea, no vomiting - Genitourinary Genitourinary: no change in urinary stream, no dysuria, no flank pain, no hematuria - Musculoskeletal Musculoskeletal ROS IM: no numbness, no tingling - Integumentary Integumentary IM: no rash, no unusual bruising - Neurological Neurological ROS: no confusion, no convulsions, no focal weakness, no numbness, no tingling, no tremor(s) - Hematologic/Lymphatic Hematologic/Lymphatic: no easy bruising - Constitutional Vitals: Temp Pulse Resp BP Pulse Ox 98.1 F 76 19 107/93 94 03/22/18 18:23 03/22/18 20:16 03/22/18 20:16 03/22/18 20:16 03/22/18 20:16 Exam: General: Alert and oriented Skin:Normal color, no rash, no lesions. HEENT:EOM, pupils equal, round and reactive. Cardiovascular:Normal S1 & S2, no rubs, murmurs or gallops. No JVD. Pulse regular. Lungs: Diffuse wheezing noted throughout all lung irvin. Abdomen:Soft, non-tender, no rigidity. Extremities:No deformity, no edema or tenderness, no joint swelling or clubbing. Neurological:Normal cognition and motor skills. Pulses:Carotid and radial pulses normal +2. Rest of the physical exam is non contributory Internal Med - H&P Results - Labs CBC & Chem 7: 03/23/18 06:12 03/24/18 05:11 Labs: Short CBC 03/22/18 Range/Units 18:30 WBC 7.9 (4.3-11.1) K/mcL Hgb 14.4 (11.5-15.4) g/dL Hct 45.9 H (35.3-44.9) % Plt Count 202 (140-400) K/mcL Neutrophils # 4.7 (1.6-8.9) K/mcL BMP 03/22/18 18:30 Sodium 139 Potassium 4.6 Chloride 102 Carbon Dioxide 26 BUN 17 Creatinine 1.46 H Glucose 99 Calcium 10.3 Cardiac Enzymes 03/22/18 Range/Units 18:30 Troponin I < 0.03 (< 0.04) ng/mL - Impressions ITS Impressions Chest X-Ray 03/22/18 18:03 IMPRESSION: No acute abnormality. D/ / Dario Soria MD / Dario Soria MD Interpreting Provider: Dario Soria MD - Assessment and plan (1) COPD exacerbation Current Visit: Yes Status: Acute Assessment and plan: Mild COPD exacerbation likely precipitated by an upper respiratory tract infection. No evidence of pneumonia at this time. Patient stable from respiratory standpoint at this time but continues to have diffuse wheezing on lung examination. Continue with DuoNeb's and Solu-Medrol Continue with azithromycin (2) CKD (chronic kidney disease) Current Visit: No Status: Acute Assessment and plan: Patient has a single kidney. Creatinine seems to be at the upper limit of her baseline. We will monitor for now. Qualifiers: Chronic kidney disease stage: stage 3 (moderate) Qualified Code(s): N18.3 - Chronic kidney disease, stage 3 (moderate) (3) CAD (coronary artery disease) Current Visit: No Status: Chronic Assessment and plan: Stable. Continue with medical management Qualifiers: Coronary Disease-Associated Artery/Lesion type: [place] artery [place] vs. transplanted heart: [place] heart Associated angina: without angina Qualified Code(s): I25.10 - Atherosclerotic heart disease of [place] coronary artery without angina pectoris (4) Diabetes mellitus Current Visit: No Status: Chronic Assessment and plan: Blood glucose checks. Sliding scale insulin. Qualifiers: Diabetes mellitus type: type 2 Diabetes mellitus snf insulin use: without long line teamster use Diabetes mellitus complication status: with kidney complications Diabetes mellitus complication detail: with chronic kidney disease Chronic kidney disease stage: stage 3 (moderate) Qualified Code(s): E11.22 - Type 2 diabetes mellitus with diabetic chronic kidney disease; N18.3 - Chronic kidney disease, stage 3 (moderate) (5) HTN (hypertension) Current Visit: No Status: Chronic Qualifiers: Hypertension type: essential hypertension Qualified Code(s): I10 - Essential (primary) hypertension (6) DVT prophylaxis Current Visit: No Status: Chronic Assessment and plan: Subcutaneous heparin - Time Spent With Patient Total time spent is greater than 50% in coordination of care (as documented) at patient's floor/unit and/or counseling patient:
[2018-03-22] MEDS ORDERED: D5% in Water 1,000 ML IVC PRN (22:16)
[2018-03-22] MEDS ORDERED: Dextrose Gel 15 GM/37.5 ML TUBE PO PRN ×2 (22:16)
[2018-03-22] MEDS ORDERED: *HR* Dextrose 50 % in Water (Syg) 50 ML SYRINGE IVP PRN (22:16)
[2018-03-22] MEDS: Ipratropium/Albuterol Neb 3 ML IH SCH (23:55)
[2018-03-23] MEDS: Azithromycin 250 MG TABLET PO SCH ×2 (00:20→07:28)
[2018-03-23] MEDS: ALPRAZolam 0.25 MG TABLET PO SCH ×5 (00:21→21:09)
[2018-03-23] MEDS: MethylPREDNISolone 40 MG/ML VIAL IVP SCH ×3 (00:21→16:38)
[2018-03-23] MEDS: Insulin LISPRO 300 UNITS/3 ML VIAL SQ SCH ×4 (00:21→16:36)
[2018-03-23] MEDS: Ipratropium/Albuterol Neb 3 ML IH SCH ×4 (04:18→22:29)
[2018-03-23 06:37] LABS: Basophils % 0.1 %; Eosinophils % 0.1 %; Hematocrit 40.9 % (35.3-44.9); Hemoglobin 13.1 g/dL (11.5-15.4); Immature Granulocytes % 0.7 % (0-4); Lymphocytes % 10.5 %; Mean Corpuscular Hemoglobin 27.5 pg (28.0-33.3); Mean Corpuscular Volume 85.7 fL (83.0-100.0); Mean Platelet Volume 9.9 fL (9.4-12.4); Monocytes % 0.5 %; Platelet Count 169 K/mcL (140-400); Red Blood Count 4.77 M/mcL (3.82-4.97); Red Cell Distribution Width 15.9 % (11.5-14.5); Segmented Neutrophils % 88.1 %
[2018-03-23 06:38] LABS: Lymphocytes # 0.9 K/mcL (0.6-4.6)
[2018-03-23 06:46] LABS: Neutrophils # 7.6 K/mcL (1.6-8.9)
[2018-03-23 06:57] LABS: Albumin/Globulin Ratio 1.6 (1.1-2.2); Bilirubin,Total 0.5 mg/dL (0.3-1.0); Calcium 10.1 mg/dL (8.6-10.3); Globulin 2.5 g/dL (2.4-3.5); Potassium 3.9 mEq/L (3.5-5.1); Total Protein 6.5 g/dL (6.4-8.9)
[2018-03-23] MEDS: Aspirin Enteric Coated 81 MG Tablet PO SCH (07:26)
[2018-03-23] MEDS: hydroCHLOROthiazide 25 MG TABLET PO SCH (07:26)
[2018-03-23] MEDS: Valsartan 160 MG TABLET PO SCH (07:27)
[2018-03-23] MEDS: Isosorbide MONOnitrate (24 HR) 60 MG TAB.ER.24H PO SCH (07:28)
[2018-03-23 07:49] LABS: Platelet Estimate Normal (Normal)
[2018-03-23 12:16] LABS: Adenovirus Not Detected (Not Detect); Bordetella Pertussis Not Detected (Not Detect); Chlamydophila pneumoniae Not Detected (Not Detect); Coronavirus 229E Not Detected (Not Detect); Coronavirus HKU1 Not Detected (Not Detect); Coronavirus NL63 Not Detected (Not Detect); Coronavirus OC43 Not Detected (Not Detect); Human Metapneumovirus Not Detected (Not Detect); Human Rhinovirus/Enterovirus DETECTED (Not Detect); Influenza A Subtype 2009 H1 Not Detected (Not Detect); Influenza A Untypeable Not Detected (Not Detect); Influenza B Not Detected (Not Detect); Mycoplasma pneumoniae Not Detected (Not Detect); Parainfluenza Virus 1 Not Detected (Not Detect); Parainfluenza Virus 2 Not Detected (Not Detect); Parainfluenza Virus 3 Not Detected (Not Detect); Parainfluenza Virus 4 Not Detected (Not Detect); Respiratory Syncytial Virus Not Detected (Not Detect)
--- NOTE | 2018-03-23 16:03 | Electrocardiograph Report ---
[place] [id number] Test Date: 2018-03-22 Pat Name: Danya Vital Department: 104 Room: 2A43 Gender: F Project Eng: ANDERS : 1945 Requested By: Kamran Samaniego Order Number: [id number] Reading MD: Miguel Gracia Measurements Intervals [place] Rate: 80 P: 43 MT: 147 QRS: 48 QRSD: 87 T: 65 QT: 359 QTc: 395 Interpretive Statements SINUS RHYTHM NONSPECIFIC T-WAVE ABNORMALITY Electronically Signed On 03-23-2018 16:01:31 EST by Miguel Gracia
--- NOTE | 2018-03-23 16:55 | Internal Med Progress Note ---
Hospitalist Progress Note - Encounter Date of Encounter: 03/23/18 Time of Encounter: 16:53 - Subjective Interval History: Pt denies fever, chills, N/V or diarrhea. She states SOB improving but reports heavy sensation in her chest. - Exam Vitals: Temp Pulse Resp BP Pulse Ox 98.3 F 102 16 125/60 91 03/23/18 16:30 03/23/18 16:30 03/23/18 16:30 03/23/18 16:30 03/23/18 16:30 Exam: General: Alert and oriented Skin:Normal color, no rash, no lesions. HEENT:EOM, pupils equal, round and reactive. Cardiovascular:Normal S1 & S2, no rubs, murmurs or gallops. No JVD. Pulse r egular. Lungs: B/L expiratory wheezing noted, no rhonci or rales.noted. Abdomen:Soft, non-tender, no rigidity. Extremities:No deformity, no edema or tenderness, no joint swelling or clubbing. Neurological:Normal cognition and motor skills. Pulses:Carotid and radial pulses normal +2. Rest of the physical exam is non contributory - Assessment and Plan (1) COPD exacerbation Current Visit: Yes Status: Acute Assessment and Plan: Mild COPD exacerbation due to Rhino/Entero virus (common cold) No evidence of pneumonia on chest x ray at this time. Patient stable from respiratory standpoint at this time but continues to have diffuse wheezing on lung examination. Continue with DuoNeb's and Solu-Medrol. Tapering steroids. Continue with azithromycin Chest x ray XR/XR chest 1V portable IMPRESSION: No acute abnormality. (2) CAD (coronary artery disease) Current Visit: No Status: Chronic Assessment and Plan: She reports prior history of 13 cardiac stents. troponin on admission <0.03. EKG showed SR HR in 80's and none-specific T wave abnormality. Will repeat troponin times one more. Last Echo 07/2017 showed EV/EV echocardiogram Impressions: LVEF 70%. Normal LV chamber size and function. Mild left ventricular diastolic dysfunction. Normal right ventricular structure and function. Mild concentric left ventricular hypertrophy. No evidence of pulmonary hypertension. No significant valvular dysfunction. Will check echo on this admission. (3) HTN (hypertension) Current Visit: No Status: Chronic Assessment and Plan: Metoprolol and Isosorbide Nitrate. (4) Diabetes mellitus Current Visit: No Status: Chronic Assessment and Plan: Blood glucose checks. Will add basal insulin and cont sliding scale insulin. Tapering steroids. (5) CKD (chronic kidney disease) Current Visit: No Status: Acute Assessment and Plan: Patient has a single kidney. Creatinine seems to be at the upper limit of her baseline. On fluids and will monitor for now.IF does not appear to improve, will consult nephrology for input. DVT Prophylaxis: SCD - Summary of Assessment and Plan Summary of Assessment and Plan: History of present illness: Dr. Keith Ms. Vital is a 72 year old female with a history of diabetes, COPD, carotid stenosis status post surgery, chronic kidney disease with lone left functional kidney, CAD status post stents and hypertension who presented to the ER for evaluation of shortness of breath. Patient reports that she has not been able to breathe for the past 4-5 days. Symptoms became worse today while she was grocery shopping at which time she developed a coughing fit and was not able unable to catch her breath. Patient reports that she has been coughing up whitish sputum. She reports subjective fever yesterday. She checked her tem perature at the time and found to be 98 degrees. She states that she has been around smokers as well as grandchildren and nephews who have been sick. She does state that she has been sleeping in a recliner because she is been unable to lie flat due to difficulty breathing. Patient is not currently on oxygen. She denies any swelling in her lower extremities. Patient has been using her nebulizer 3 times a day however without any improvement. She does note a little bit of a runny nose. Patient reports taking azithromycin for 3 days as well as Levaquin tablets which she has had from previous. Patient reports feeling much better now after receiving nebulizer treatment in the ED as well as prednisone. Patient denies any chills, nausea, vomiting, diarrhea, chest pain. - Time Spent with Patient Total time spent is greater than 50% in coordination of care (as documented) at patient's floor/unit and/or counseling patient: less than 15 minutes Plan of Care Discussed with: patient Internal Medicine: Result - Labs CBC & Chem 7: 03/23/18 06:12 03/23/18 06:12 Labs: Short CBC 03/22/18 03/23/18 Range/Units 18:30 06:12 WBC 7.9 8.6 (4.3-11.1) K/mcL Hgb 14.4 13.1 (11.5-15.4) g/dL Hct 45.9 H 40.9 (35.3-44.9) % Plt Count 202 169 (140-400) K/mcL Neutrophils # 4.7 7.6 (1.6-8.9) K/mcL BMP 03/22/18 03/23/18 18:30 06:12 Sodium 139 136 Potassium 4.6 3.9 Chloride 102 102 Carbon Dioxide 26 23 BUN 17 22 Creatinine 1.46 H 1.45 H Glucose 99 257 H Calcium 10.3 10.1 Cardiac Enzymes 03/22/18 Range/Units 18:30 Troponin I < 0.03 (< 0.04) ng/mL Liver Function 03/23/18 Range/Units 06:12 Total Bilirubin 0.5 (0.3-1.0) mg/dL AST 16 (13-39) Units/L ALT 16 (7-52) Units/L Alkaline Phosphatase 77 (34-104) Units/L Albumin 4.0 (3.5-5.7) g/dL - Impressions Impressions Chest X-Ray 03/22/18 18:03 IMPRESSION: No acute abnormality. D/ / Dario Soria MD / Dario Soria MD Interpreting Provider: Dario Soria MD Consult Discharge Plan - Plan Referrals: NONE,PCP [Primary Care Provider] - (2) CAD (coronary artery disease) Qualifiers: Coronary Disease-Associated Artery/Lesion type: [place] artery [place] vs. transplanted heart: [place] heart Associated angina: without angina Qualified Code(s): I25.10 - Atherosclerotic heart disease of [place] coronary artery without angina pectoris (3) HTN (hypertension) Qualifiers: Hypertension type: essential hypertension Qualified Code(s): I10 - Essential (primary) hypertension (4) Diabetes mellitus Qualifiers: Diabetes mellitus type: type 2 Diabetes mellitus chcf insulin use: without chcf use Diabetes mellitus complication status: with kidney complications Diabetes mellitus complication detail: with chronic kidney disease Chronic kidney disease stage: stage 3 (moderate) Qualified Code(s): E11.22 - Type 2 diabetes mellitus with diabetic chronic kidney disease; N18.3 - Chronic kidney disease, stage 3 (moderate) (5) CKD (chronic kidney disease) Qualifiers: Chronic kidney disease stage: stage 3 (moderate) Qualified Code(s): N18.3 - Chronic kidney disease, stage 3 (moderate)
[2018-03-23] MEDS ORDERED: Insulin LISPRO 300 UNITS/3 ML VIAL SQ SCH (21:00)
[2018-03-24] MEDS: Ipratropium/Albuterol Neb 3 ML IH SCH ×2 (03:42→11:12)
[2018-03-24] MEDS: MethylPREDNISolone 40 MG/ML VIAL IVP SCH (05:34)
[2018-03-24 06:04] LABS: Calcium 9.9 mg/dL (8.6-10.3); Potassium 4.4 mEq/L (3.5-5.1)
[2018-03-24] MEDS: ALPRAZolam 0.25 MG TABLET PO SCH ×2 (08:02→13:01)
[2018-03-24] MEDS: Valsartan 160 MG TABLET PO SCH (08:02)
[2018-03-24] MEDS: Isosorbide MONOnitrate (24 HR) 60 MG TAB.ER.24H PO SCH (08:02)
[2018-03-24] MEDS: Aspirin Enteric Coated 81 MG Tablet PO SCH (08:02)
[2018-03-24] MEDS: Azithromycin 250 MG TABLET PO SCH (08:03)
[2018-03-24] MEDS: hydroCHLOROthiazide 25 MG TABLET PO SCH (08:03)
[2018-03-24] MEDS: Insulin LISPRO 300 UNITS/3 ML VIAL SQ SCH ×2 (08:03→11:39)
[2018-03-24 11:28] VITALS: BP 123/55
--- NOTE | 2018-03-24 14:43 | Discharge Summary ---
- NOTES TO OUTPATIENT PROVIDER Notes to Outpatient Provider: PCP in 5 to 7 days. Follow up out pt with nepology in one week Orders not resulted at time of discharge: Pending orders 03/28/18 out pt BMP [Basic Metabolic Panel] AM 0400 Date of Encounter: 03/24/18 Time of Encounter: 14:32 - Discharge Diagnosis (1) COPD exacerbation Priority: Primary Status: Acute Assessment and Plan: Mild COPD exacerbation likely precipitated by an upper respiratory tract infection. Resp panel positive for Rhino and Enterovirus No evidence of pneumonia at this time. Patient stable from respiratory standpoint, diffuse wheezing completely resolved. Continue with home DuoNeb's and DC off steroids. Will DC azithromycin. Chest x ray XR/XR chest 1V portable IMPRESSION: No acute abnormality. (2) CAD (coronary artery disease) Priority: Secondary Status: Chronic Assessment and Plan: Stable. Continue with medical management. Echo done on this admission but results pending. troponin <0.03, chest x ray neg, EKG showed SR with non-specific T wave abnormality. Pt denies CP or SOB at this time. Qualifiers: Coronary Disease-Associated Artery/Lesion type: [place] artery [place] vs. transplanted heart: [place] heart Associated angina: without angina Qualified Code(s): I25.10 - Atherosclerotic heart disease of [place] coronary artery without angina pectoris (3) HTN (hypertension) Priority: Secondary Status: Chronic Assessment and Plan: HCTZ and Metropolol Qualifiers: Hypertension type: essential hypertension Qualified Code(s): I10 - Essential (primary) hypertension (4) Diabetes mellitus Priority: Secondary Status: Chronic Assessment and Plan: Pt should resume home dose Januvia and follow up out pt with her PCP. 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 Creatinine seems to be at the upper limit of her baseline. Pt will need BMP done out pt and follow up with nephrology Qualifiers: Chronic kidney disease stage: stage 3 (moderate) Qualified Code(s): N18.3 - Chronic kidney disease, stage 3 (moderate) (6) Acute kidney injury Priority: Primary Status: Acute Assessment and Plan: ZENAIDA present on admission. ZENAIDA superimposed on CKD, pt states she was informed she only had one functioning kidney. Cr 1.46 on admission down to 1.36 after getting IVF. 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 Will set up out pt appointment with nephrology in a week and will need BMP drawn 03/28/2018 out pt. Discussed with pt and she is agreeable with following up out pt with nephrology. Will hold her Valsartan and HCTZ pending her follow up with nephrology Hospital course: History of present illness: Dr. Keith Ms. Vital is a 72 year old female with a history of diabetes, COPD, carotid stenosis status post surgery, chronic kidney disease with lone left functional kidney, CAD status post stents and hypertension who presented to the ER for evaluation of shortness of breath. Patient reports that she has not been able to breathe for the past 4-5 days. Symptoms became worse today while she was grocery shopping at which time she developed a coughing fit and was not able unable to catch her breath. Patient reports that she has been coughing up whitish sputum. She reports subjective fever yesterday. She checked her temperature at the time and found to be 98 degrees. She states that she has been around smokers as well as grandchildren and nephews who have been sick. She does state that she has been sleeping in a recliner because she is been unable to lie flat due to difficulty breathing. Patient is not currently on oxygen. She denies any swelling in her lower extremities. Patient has been using her nebulizer 3 times a day however without any improvement. She does note a little bit of a runny nose. Patient reports taking azithromycin for 3 days as well as Levaquin tablets which she has had from previous. Patient reports feeling much better now after receiving nebulizer treatment in the ED as well as prednisone. Patient denies any chills, nausea, vomiting, diarrhea, chest pain. Discharge discussed with: patient - Time Spent with Patient Total time spent providing and/or coordinating discharge services: Greater than 30 minutes - Discharge Medications Home Medications: ALPRAZolam [Xanax 0.25 MG Tablet] 0.25 mg PO QID 08/09/15 [History] Nitroglycerin [Nitrostat] 0.4 mg SL Q5M PRN 08/09/15 [History] Pantoprazole Sodium [Protonix] 40 mg PO DAILY 14 Days tablet. 09/07/15 [Rx] Atorvastatin [Lipitor] 40 mg PO HS 07/31/16 [History] Tiotropium [Spiriva] 2 puff IH DAILY PRN 07/31/16 [History] Albuterol Sulfate [Albuterol Inhaler] 2 puff IH Q4HR PRN 08/04/16 [History] Metoprolol [Lopressor] 25 mg PO BID 08/04/16 [History] Isosorbide MONOnitrate (24 HR) [Imdur] 60 mg PO DAILY 07/28/17 [History] Multivitamin [One Daily Multivitamin] 1 each PO DAILY 07/28/17 [History] Sitagliptin Phosphate [Januvia] 50 mg PO DAILY 07/28/17 [History] Ipratropium/Albuterol Neb [Duoneb] 3 ml IH Q6H PRN #30 vial.neb 08/03/17 [Rx] Acetaminophen [Tylenol] 1,000 mg PO Q6HR PRN 03/22/18 [History] Allopurinol [Zyloprim 300 MG] 300 mg PO DAILY 03/22/18 [History] Aspirin [Lo-Dose Aspirin EC] 81 mg PO DAILY 03/22/18 [History] PARoxetine HCl [Paroxetine HCl] 40 mg PO DAILY 03/22/18 [History] Valsartan/Hydrochlorothiazide [Diovan Hct 160-12.5 mg Tab] 1 tab PO DAILY 03/22/18 [History] Allergies/Adverse Reactions: Allergy/AdvReac Type Severity Reaction Status Date / Time ondansetron Allergy Hives Verified 03/22/18 21:38 [From Zofran (as hydrochloride)] clavulanic acid AdvReac Heartburn Verified 03/22/18 21:38 Penicillins AdvReac Vomiting Verified 03/22/18 21:38 Lypogah-Yln-[id number] Reductase AdvReac Muscle Pain Verified 03/22/18 21:38 Inhibitor [Statins] Ticarcillin AdvReac Vomiting Verified 03/22/18 21:38 Date of admission: 03/22/18 21:07 Primary care physician: PCP NONE Consults: 03/22/18 21:34 Consult to Nurse Navigator [CONS] Routine Comment: Discharging clinician: Christie Crane Anticipated date of discharge: 03/24/18 - Constitutional Vitals: Temp Pulse Resp BP Pulse Ox 98.2 F 85 18 123/55 93 03/24/18 11:27 03/24/18 11:27 03/24/18 11:27 03/24/18 11:27 03/24/18 11:27 General appearance: Present: A&O X 3, no acute distress Exam: . - Head Head exam: Present: atraumatic, normocephalic - Eye Eye exam: Present: PERRL, conjuntiva pink, sclera anicteric Pupils: Present: PERRL - Neck Neck exam general surgery: Present: supple, trachea midline. Absent: lymphadenopathy - Respiratory Respiratory exam: Present: CTAB. Absent: accessory muscle use, rales, rhonchi, wheezes - Cardiovascular Cardiovascular exam: Present: RRR, +S1, +S2. Absent: diastolic murmur, gallop, rubs, systolic murmur - GI/Abdominal GI/Abdominal exam: Present: normal bowel sounds, soft, no peritoneal signs. Absent: distended, tenderness - Extremities Exam Extremities exam: Present: warm, radial pulses palpable and symmetrical. Absent: calf tenderness, cyanotic, pedal edema - Neurological Exam Neurological exam: Present: CN II-XII intact, oriented X3, no focal deficits. Absent: pronater drift, facial droop, speech deficit - Skin Skin exam: Present: dry, intact - Patient Status Disposition: Home, Self-Care Condition: Good Overall status at discharge: patient is back to baseline - Discharge Instructions Instructions: Diabetes Mellitus Type 2 in Adults (DC), Chronic Obstructive Pulmonary Disease (DC) Follow Up With: NONE,PCP [Primary Care Provider] - - Diet and Activity Activity: increase activity as tolerated Diet: diabetic diet, low fat, low cholesterol, low salt diet
[2018-03-24] MEDS ORDERED: predniSONE 20 MG TABLET PO SCH (18:00)
== END 2018-03-24 16:26 | disposition home or self-care (01) | DRG 191 ==
LOC: 2ANU 17:26 → EMEROOARM 17:26 → 2ANU 21:50
PROVIDERS: ADMIT Internal Medicine; ATTEND Internal Medicine